=== PATIENT | male | born 1940 | race Caucasian/White ===

== ENCOUNTER 2016-09-22 02:51 | Emergency (ER) | payer MEDICARE, OTHER ==
[~2016-09-22] VITALS: Ht 180.3 cm; Wt 120.0 kg
[~2016-09-22 02:51] MED LIST: CRES20T PO; DOCU100C8 PO; FURO40TA4 PO; INSU100I13 SUBQ; INSU100I8 SUBQ; Isosorbide Mononitrate PO; METO50TA3 PO; NITR0.4T6 SL; TR5C15 TOP; WARF3TAB7 PO; [UNRECOGNIZED DRUG - CODE] PO
[2016-09-22 02:57] VITALS: BP 199/76; PULSE 70; RESP 16; O2SAT 96
--- NOTE | 2016-09-22 03:28 | ED.REPORT ---
HPI-Hand Prob/Inj Date of Service Sep 22, 2016 ED Provider: Inder Brock MD Patient is a year old male with a history of diabetes mellitus, coronary artery disease, hypertension, prostate cancer, congestive heart failure, stroke, and aortic valve replacement on Coumadin who presents to the ED with a skin tear to his left hand that he sustained just prior to arrival. Patient states that he was installing a shelf next to his bed and accidentally scraped himself. He was able to stop the bleeding with a paper towel at home. Patient did not sustain any other injuries. His INR was last checked on September 08, which was therapeutic.. He is unsure of when his last Tetanus shot was. Nursing Notes Stated Complaint: L HAND INJURY - ON WARFARIN Chief Complaint: Extremity Trauma Nursing Notes Reviewed: Yes Allergies: Coded Allergies: morphine (Verified Allergy, Intermediate, Hallucinations, 09/22/16) lisinopril (Verified Adverse Reaction, Mild, Cough, 09/22/16) Scheduled ([Isosorbide Mononitrate]) 30 MG TABLET.ER 60 MG PO 0730 Desipramine (Desipramine) 150 Mg Tab 150 MG PO HS Furosemide (Furosemide) 40 Mg Tablet 80 MG PO BID Insulin Glargine (Lantus U100 Solostar Insulin Pen) 100 Unit/1 Ml Insuln.pen 58 UNIT SUBQ DAILY Metoprolol Tartrate (Metoprolol Tartrate) 50 Mg Tablet 150 MG PO BID Rosuvastatin Calcium (Crestor) 20 Mg Tablet 40 MG PO DAILY Triamcinolone Acet (Triamcinolone Acetonide Cream) 4 Applic/Gm Cr 1 APPLIC TOP BID Warfarin Sodium (Warfarin Sodium) 3 Mg Tablet 3.5 MG PO DAILY Scheduled PRN Docusate Sodium (Docusate Sodium) 100 Mg Capsule 100 MG PO HS PRN PRN For Constipation Nitroglycerin SL (Nitroglycerin SL) 0.4 Mg Tab.subl 0.4 MG SL Q5MIN PRN PRN For Chest Pain General Time Seen by Provider: 03:32 Chief Complaint Hand injury left Hx Obtained From: Patient Arrived By: Walk-in Onset Occurred: Just prior to arrival Symptom Duration: Since onset Caused by: Accidental Location: Left Hand: : Dorsal surface Quality: Painful Severity: Current: Mild Severity: Maximum: Mild Immunizations: Tetanus not up to date Recent Healthcare: No recent doctor visit, No recent hospitalization Similar Sx Previous: No Past Medical History Past Medical History Prostate cancer s/p pelvic irradiation chronic kidney disease diabetic neuropathy depression Reports: Cancer, Congestive heart failure, Coronary artery disease, Diabetes mellitus, GERD, Hyperlipidemia, Hypertension, Stroke Past Surgical History lazer retinal surgery aortic valve replacement CABG 2009 to LAD and OM, pacemaker cararact extraction hernia repair Smoking History Former Smoker Social History Alcohol Use: Denies alcohol use Drug Use: Denies drug use Other Social History: Local resident Ambulatory Status Independent Review of Systems Musculoskeletal: Reports: Extremity pain, Denies: Extremity swelling Complete sys rev & neg: except as marked. Hematologic: Reports Bleeding, Denies Bruising Physical Exam Initial Vital Signs Vital Signs (First) Date Time Temp Pulse Resp B/P Pulse Ox O2 Delivery O2 Flow Rate FiO2 09/22/16 02:57 36.4 70 16 199/76 96 Room Air Initial VS: Reviewed, Vital signs abnormal Head / Eyes: Atraumatic, Normocephalic, PERRL ENT: Conjunctiva normal, No scleral icterus Neck: Supple, Full range of motion Skin: Warm, Dry, No cyanosis Neurologic: Alert, Oriented, Nonfocal Psychiatric: Mood/affect normal, Behavior normal, Normal thought content Wrist / Hand: Neurologic intact, Vascular intact Left hand: Skin avulsion, multicentric, across the 1-2 web space at the base of the thumb. Bleeding is well controlled. General/Constitutional: Awake, Alert, No acute distress Appearance / Presentation: Positive: Obese Respiratory / Chest: No respiratory distress, No stridor Cardiovascular: Heart rate NL, Cap refill not delayed Upper Extremity / MS: Neurologic intact, Vascular intact Lower Extremity / Pelvis / MS: Neurologic intact, Vascular intact Procedures Laceration Management Time: 04:32 Procedure Performed by: ED physician Consent / Setup / Site Prep: Time-out performed, Hand hygiene observed, Stand sterile technique Location of Wound: skin avulsion left hand Local Anesthesia: Other (LET) Wound Preparation: Normal saline Debridement: Moderate (devitalized skin removed) Foreign Body Explore / Removal: Explored for foreign body Post-Procedure / Complications: Antibiotic oint applied, Dressing applied, No complications, Condition improved, Tolerated procedure well, Patient stable Re-Eval/Medical Decision Med Decision/Clinical Course 76-year-old male with a skin tear which bled minimally. This was anesthetized topically with LET, debrided, and dressed. There is no excessive bleeding so I felt no indication to do an INR at this time. He will have his INR done as scheduled later this week or contact them sooner if there is bleeding. Source of Hx: Old records Re-Evaluation/Progress : Time of Eval: 04:33 Patient Status: Condition improved Re-Evaluation/Progress Note: Patient's wound was debrided and dressed. Patient understands and agrees with the plan to be discharged home. Discharge instructions and follow-up discussed. All questions were addressed. Return to the ED warnings given. Counseled Regarding: Diagnosis, Need for follow-up, When/why to return to ED Discharge & Departure Primary Impression: Avulsion of skin of left hand Encounter type: initial encounter Qualified Code: S61.402A - Unspecified open wound of left hand, initial encounter Disposition: Home Discharge Condition All VS Reviewed: Yes Condition: Stable Patient Instructions: Skin Avulsion (ED) Additional Instructions: The skin was removed and the wound was dressed. Get your ProTime/INR checked routinely with your regular clinic. You also received a tetanus shot. Referrals: Obinna Barrios MD (PCP) Alirioibe Attestation Portions of this note were transcribed by Soraida Jo. I, Dr. Brock personally performed the history, physical exam and medical decision-making; I reviewed and confirmed the accuracy of the information in the transcribed note. Signed by: Erik Milner, 09/22/2016 [id number] copies to: Obinna Barrios MD, Howard L MD Sep 22, 2016 03:28 Soraida Jo Sep 22, 2016 03:35
[2016-09-22] MEDS ORDERED: Influenza (Adult) Vaccine 0.5 mL Syringe IM ONE (03:35)
[2016-09-22] MEDS ORDERED: Lidocaine-Epi-Tetracaine Solution 3 mL Syringe TOPICAL ONE (03:35)
[2016-09-22] MEDS ORDERED: TdaP Vaccine 0.5 mL Inj IM ONE (04:40)
[2016-09-22 04:55] VITALS: BP 180/79; PULSE 72; RESP 16; O2SAT 98
== END 2016-09-22 05:03 | disposition home or self-care (01) ==
LOC: SED 02:51
DX: S61.402A Unspecified open wound of left hand, initial encounter (principal); W45.8XXA Other foreign body or object entering through skin, initial encounter; Y93.89 Activity, other specified; Y92.003 Bedroom of unspecified non-institutional (private) residence as the place of occurrence of the external cause; Y99.8 Other external cause status; E11.40 Type 2 diabetes mellitus with diabetic neuropathy, unspecified; I25.10 Atherosclerotic heart disease of native coronary artery without angina pectoris; I10 Essential (primary) hypertension; I50.9 Heart failure, unspecified; E78.5 Hyperlipidemia, unspecified; Z85.46 Personal history of malignant neoplasm of prostate; Z79.01 Long term (current) use of anticoagulants; Z86.73 Personal history of transient ischemic attack (TIA), and cerebral infarction without residual deficits; Z95.1 Presence of aortocoronary bypass graft; Z95.0 Presence of cardiac pacemaker; Z95.2 Presence of prosthetic heart valve; Z87.891 Personal history of nicotine dependence; Z88.5 Allergy status to narcotic agent; Z88.8 Allergy status to other drugs, medicaments and biological substances; Z79.4 Long term (current) use of insulin; Z23 Encounter for immunization
CPT/HCPCS: 90471; 90715; 96372; 97597; 99284; Q2039

== ENCOUNTER 2016-10-26 18:03 | Inpatient (IN) | payer MEDICARE, OTHER ==
[~2016-10-26] VITALS: Ht 180.3 cm; Wt 110.6 kg
[~2016-10-26 18:03] MED LIST changes: -INSU100I8 SUBQ
[2016-10-26 18:10] VITALS: BP 113/63; PULSE 64; RESP 17; O2SAT 96
[2016-10-26 19:02] LABS: BASOPHILS % (AUTO) 0.2 % (0-3); EOSINOPHILS % (AUTO) 1.2 % (0-5); MONOCYTES % (AUTO) 10.1 % (4-12); Mean Corpuscular Hemoglobin 29.9 pg (27.0-35.0); NEUTROPHILS % (AUTO) 71.9 % (40-74); Platelet Count 195 bil/L (150-400)
[2016-10-26 19:35] LABS: TROPONIN T 0.045 ug/L (0.0-0.011)
[2016-10-26 20:13] LABS: INR 2.32 ratio
--- NOTE | 2016-10-26 20:20 | ED.REPORT ---
HPI-General Illness Date of Service Oct 26, 2016 ED Provider: Marcus Longo MD 76 year old male with a history of chronic kidney disease, CHF, CAD, diabetes, and HTN presents to the ER complaining of a week of worsening generalized weakness, worsening dramatically this evening around 16:30. Daughter reports that the patient called her and reported that he was too weak to get out of bed. Associated symptom of cramping pain in his arms and legs, dyspnea with minimal exertion, and chronic transient chest discomfort, though no chest pain recently. Patient denies fever, abdominal pain, and seizures. His dredge master started him on a new medication about 10 days ago, per daughter. He also mentions that he ran out of his Lantus about a week ago, but he has been taking 10 units fast-acting insulin three times daily recently to compensate. Nursing Notes Stated Complaint: DEHYDRATION Chief Complaint: General Complaint Nursing Notes Reviewed: Yes Allergies: Coded Allergies: morphine (Verified Allergy, Intermediate, Hallucinations, 10/26/16) lisinopril (Verified Adverse Reaction, Mild, Cough, 10/26/16) Scheduled Cholecalciferol (Vitamin D3) (Vitamin D3) 2,000 Unit Tablet 2,000 UNIT PO DAILY Cyanocobalamin (Vitamin B-12) (Vitamin B-12) 1,000 Mcg Tablet 1,000 MCG PO DAILY Desipramine (Desipramine) 150 Mg Tab 150 MG PO HS Ferrous Sulfate (Ferrous Sulfate) 325 Mg Tablet 325 MG PO DAILY Furosemide (Furosemide) 80 Mg Tab 160 MG PO BIDWM Insulin Aspart (NovoLOG U100 Insulin Vial) 100 U/Ml U 10 UNIT SUBQ DAILYWD Insulin Glargine (Lantus U100 Solostar Insulin Pen) 100 Unit/1 Ml Insuln.pen 48- 58 UNIT SUBQ HS Pt ran out 1 week ago, supplementing with Novolog Isosorbide MN ER (Isosorbide MN ER) 60 Mg Tab.er.24h 60 MG PO HS Magnesium Oxide (Magnesium Oxide) 400 Mg Tablet 800 MG PO DAILY Metolazone (Metolazone) 2.5 Mg Tablet 2.5 MG PO Mon/Thurs only Metoprolol Tartrate (Metoprolol Tartrate) 50 Mg Tablet 50 MG PO BID Potassium Chloride ER (Potassium Chloride ER) 10 Meq Tablet 10 MEQ PO DAILY TAKE WITH FOOD Rosuvastatin Calcium (Rosuvastatin Calcium) 40 Mg Tablet 40 MG PO HS Warfarin Sodium (Warfarin Sodium) 3 Mg Tablet 3.5 MG PO DAILY Scheduled PRN Docusate Sodium (Colace) 100 Mg Capsule 100 MG PO DAILY PRN PRN For Constipation Nitroglycerin SL (Nitroglycerin SL) 0.4 Mg Tab.subl 0.4 MG SL Q5MIN PRN PRN For Chest Pain Triamcinolone Acet (Triamcinolone Acetonide Cream) 1 Applic/0.25 Gm Cr 1 APPLIC EXT BID PRN PRN rash General Time Seen by MD: 19:58 Chief Complaint Weakness Hx Obtained From: Patient Arrived By: Walk-in Onset Occurred: 1 week ago Symptom Duration: Since onset Associated with: Denies: Abdominal pain, Chest pain, Fever Additional Notes: Cramping pain in the arms and legs Pertinent Negative: Pt denies other symptoms Context Related History: Reports Cancer Recent Healthcare: Recent doctor visit Past Medical History Past Medical History Prostate cancer s/p pelvic irradiation chronic kidney disease diabetic neuropathy depression Reports: Cancer, Congestive heart failure, Coronary artery disease, Diabetes mellitus, GERD, Hyperlipidemia, Hypertension, Stroke Past Surgical History lazer retinal surgery aortic valve replacement CABG 2009 to LAD and OM, pacemaker cararact extraction hernia repair Smoking History Former Smoker Social History Alcohol Use: Denies alcohol use Drug Use: Denies drug use Other Social History: Local resident Ambulatory Status Independent Review of Systems Full Review of Systems Constitutional: Reports: Weakness - generalized, Denies: Chills, Fever Respiratory: Reports: Dyspnea on exertion, Denies: Non-productive cough, Shortness of breath Cardiovascular: Denies: Chest pain GI: Denies: Abdominal pain, Nausea, Vomiting Musculoskeletal: Reports: Extremity pain (Arms and Legs), Denies: Lumbar pain, Neck pain Neurologic: Denies: Seizure Complete sys rev & neg: except as marked. Physical Exam Vital Signs Vital Signs Date Time Temp Pulse Resp B/P Pulse Ox O2 Delivery O2 Flow Rate FiO2 10/26/16 21:25 36.1 64 18 154/55 89 Room Air 10/26/16 18:10 36.6 64 17 113/63 96 Room Air Initial VS: Reviewed Head / Eyes: Atraumatic, Normocephalic Neck: Supple, Non-tender, Full range of motion Abdomen / GI: Soft, Non-tender, No guarding, No rebound, No distention Extremities: Vascular intact, Neuro intact, No tenderness Skin: Warm, Dry, No cyanosis Neurologic: Alert, Oriented, Nonfocal General/Constitutional: Awake, Alert, Well developed, Well nourished Respiratory / Chest: Breath sounds NL, No respiratory distress, No rales, No rhonchi, No wheezing Cardiovascular: Heart rate NL, Regular rhythm, Heart sounds NL, No murmurs, Cap refill not delayed Lower Ext Edema: Positive: Bilateral 1+ Interpretation & Diagnostics Lab Results Interpretation Result Diagram: 10/26/168 10/26/161847 Test 10/26/16 18:48 10/26/16 21:18 White Blood Count 5.7th/mm3 (3.8-10.1) Red Blood Count 4.48mil/mm3 (4.40-5.80) Hemoglobin 13.4g/dL (13.8-17.2) Hematocrit 37.2% (41.0-50.0) Mean Corpuscular Volume 83.0fL (81-100) Mean Corpuscular Hemoglobin 29.9pg (27.0-35.0) Mean Corpuscular Hemoglobin Concent 36.0% (32.0-37.0) Red Cell Distribution Width 12.1% (12.3-15.4) Platelet Count 195bil/L (150-400) Neutrophils (%) (Auto) 71.9% (40-74) Lymphocytes (%) (Auto) 16.6% (14-46) Monocytes (%) (Auto) 10.1% (4-12) Eosinophils (%) (Auto) 1.2% (0-5) Basophils (%) (Auto) 0.2% (0-3) Sodium Level 123mEq/L (134-144) Potassium Level 3.6mEq/L (3.5-5.2) Chloride Level 79mEq/L (97-108) Carbon Dioxide Level 32mmol/L (18-29) Blood Urea Nitrogen 51mg/dL (8-27) Creatinine 2.58mg/dL (0.76-1.27) Estimat Glomerular Filtration Rate 26mL/min (>59) Glucose Level 615mg/dL (60-99) Osmolality 303 (275-300) Calcium Level 9.0mg/dL (8.5-10.1) Total Bilirubin 0.5mg/dL (0.0-1.2) Aspartate Amino Transf (AST/SGOT) 21U/L (0-50) Alanine Aminotransferase (ALT/SGPT) 21U/L (0-44) Alkaline Phosphatase 106U/L (25-160) Troponin T 0.045ug/L (0.0-0.011) Total Protein 6.5g/dL (6.4-8.4) Albumin 3.3g/dL (3.4-5.0) Hold Roberto Top Tube Received (Received) Ketones Negative (Negative) Urine Color Straw (YELLOW) Urine Appearance Clear (CLEAR,HAZY) Urine pH 6.0 (5.0-8.0) Urine Specific [place] 1.020 (1.003-1.035) Urine Protein 100mg/dL (NEG,TRACE) Urine Glucose (UA) 1000mg/dL (NEGATIVE) Urine Ketones Negativemg/dL (NEGATIVE) Urine Occult Blood Small (NEGATIVE) Urine Nitrite Negative (NEGATIVE) Urine Bilirubin Negative (NEGATIVE) Urine Urobilinogen Normalmg/dL (NORMAL) Urine Leukocyte Esterase Negative (NEGATIVE) Urine RBC 0-2/hpf (0-2) Urine WBC 0-5/hpf (0-5) Urine Epithelial Cells None/hpf (NONE-MOD) Urine Crystals None seen (NONE SEEN) Urine Bacteria None/hpf (NONE-FEW) Urine Hyaline Casts None/lpf (NONE) Urine Granular Casts None seen (NONE SEEN) Urine Waxy Casts None seen (NONE SEEN) Urine Red Blood Cell Casts None seen (NONE SEEN) Urine White Blood Cell Casts None seen (NONE SEEN) Urine Mucus None seen (None Seen) Urine Trichomonas None seen (NONE SEEN) Urine Yeast None (NONE SEEN) Urinalysis Comment None Urine Culture Reflexed Not indicated ECG Interpretation ECG Interpretation: Paced rhythm LVH Time: 19:31 Interpreted by: ED physician X-Ray Chest Interpretation Chest Xray Interpretation: IMPRESSION: No acute disease Dictated by: Nathan Hernandez M.D. on 10/26/2016 at 20:41 Approved by: Nathan Hernandez M.D. on 10/26/2016 at 20:41 View: Portable, 1 view Interpretation / Wet Read by: Interpret - Radiologist Re-Eval/Medical Decision Med Decision/Clinical Course 76-year-old male history of diabetes, CK D, hypertension presenting complaining of generalized weakness 1 week. Patient had metolazone added one week ago. He also of note ran out of his Lantus 1 week ago and has been unable to get this filled. Labs remarkable for sodium 123, glucose 600, creatinine 2.5 up from 1.9 previous, troponin 0.04 (chronically elevated). Ketones are negative and osms are 304 no DKA or HHS. Patient feels very weak and does not feel comfortable going home. He will be admitted for weakness, hyperglycemia, hyponatremia, elevated troponins. Given aspirin. Trend trops. Give IV fluids. Source of Hx: Old records Time of Eval: 20:47 Re-Evaluation/Progress Note: Completed physical examination and discussed need for admission. Patient is amenable to the plan. All other questions addressed. Consultation : Referral / Consult Name: Jacky Thomas MD Consulted With: Hospitalist Call Returned at: 21:29 Alarm Installer: Agrees with eval, Agrees with plan, Accepts admit Counseled Regarding: Diagnosis, Lab results, Need for admission Discharge & Departure Primary Impression: Weakness Additional Impressions: Hyponatremia Hyperglycemia Acute kidney injury Disposition: ADMITTED TO HOSPITAL Discharge Condition All VS Reviewed: Yes Condition: Stable Referrals: Obinna Barrios MD (PCP) Erik Attestation Portions of this note were transcribed by Edson Keen. I, Dr. Longo, personally performed the history, physical exam and medical decision-making; I reviewed and confirmed the accuracy of the information in the transcribed note. Signed by: Erik Matta, 10/26/2016 - 21:32 copies to: Obinna Barrios MD, Ben M MD Oct 26, 2016 20:20 EDSON KEEN Oct 26, 2016 20:22
--- NOTE | 2016-10-26 20:43 | DRSVH ---
PROCEDURE: X-RAY CHEST ONE VIEW, PORTABLE ([id number]) INDICATIONS: CONGESTIVE HEART FAILURE TECHNIQUE: One view of the chest was acquired. COMPARISON: [facility], CR, XR CHEST 1VW (PORTABLE), 02/26/2016, 23:16. FINDINGS: Surgical changes and devices: Sternotomy wires and cardiac pacer Lungs and pleura: No pleural effusions or pneumothorax. Lungs are clear. Mediastinum: Mediastinal contours appear normal. Heart size is normal. Bones and chest wall: No suspicious bony lesions. Overlying soft tissues appear unremarkable. IMPRESSION: No acute disease Dictated by: Nathan Hernandez M.D. on 10/26/2016 at 20:41 Approved by: Nathan Hernandez M.D. on 10/26/2016 at 20:41
[2016-10-26] MEDS ORDERED: 0.9% Sodium Chloride 500 ML IV ONE ×2 (20:50→21:55)
[2016-10-26] MEDS ORDERED: Insulin LISPRO 300 Unit/3 mL Inj SUBQ ONE (20:50)
[2016-10-26 21:25] VITALS: BP 154/55; PULSE 64; RESP 18; O2SAT 89
[2016-10-26 21:49] LABS: APPEARANCE,URINE CLEAR (CLEAR,HAZY); COLOR,URINE STRAW (YELLOW); OCCULT BLOOD,URINE SMALL (NEGATIVE); UROBILINOGEN,URINE NORMAL (NORMAL)
[2016-10-26] MEDS ORDERED: Ondansetron 2 mg/mL 2 mL Inj IVPUSH PRN ×2 (21:50→22:20)
[2016-10-26] MEDS ORDERED: Alum-Mag Hydrox-Simeth 30 mL Suspension PO PRN ×2 (21:50→22:20)
[2016-10-26] MEDS ORDERED: FRSM80T PO (21:51)
[2016-10-26] MEDS ORDERED: METO2.5T12 PO (21:53)
[2016-10-26] MEDS ORDERED: POTA10TA12 PO (21:54)
[2016-10-26] MEDS ORDERED: DOCU-41 PO (21:55)
[2016-10-26] MEDS ORDERED: INSU100C8 SUBQ (21:55)
[2016-10-26] MEDS ORDERED: ROSU40TA20 PO (21:56)
[2016-10-26] MEDS ORDERED: ISOS60TA2 PO ×2 (21:57)
[2016-10-26] MEDS ORDERED: MAGN400T4 PO (21:58)
[2016-10-26] MEDS ORDERED: FERR-83 PO (21:59)
[2016-10-26] MEDS ORDERED: CYAN10008 PO (21:59)
[2016-10-26] MEDS ORDERED: CHOL200025 PO (22:00)
[2016-10-26] MEDS ORDERED: CHOL100043 PO (22:00)
[2016-10-26] MEDS ORDERED: KEN25CR EXT (22:03)
[2016-10-26] MEDS: 0.9% Sodium Chloride 1,000 ML IV SCH (22:17)
[2016-10-26] MEDS ORDERED: Glucose 40% Oral Gel 15 Gm Tube PO PRN (22:20)
[2016-10-26 22:43] VITALS: BP 142/66; PULSE 61; RESP 18; O2SAT 96
[2016-10-26 22:54] VITALS: PULSE 63
[2016-10-26 23:03] LABS: INR 2.09 ratio
[2016-10-26 23:20] LABS: Magnesium 1.8 mg/dL (1.6-2.6)
[2016-10-26 23:42] VITALS: BP 132/84; PULSE 66; RESP 18; O2SAT 98
[2016-10-27] VITALS (7 sets, daily range): BP systolic 132–179; BP diastolic 53–82; PULSE 67–92; RESP 18–22; O2SAT 91–95
--- NOTE | 2016-10-27 00:06 | NUR ---
Admitting: Patient admitted into 3004 from ED via [facility]. Daughter at bedside during admission. RA, Vitals stable, No pain or SOB. Admission questions were answered appropriately. BS of 560 noted. Home meds not available at this time but plan to have them by tomorrow morning. Report passed to RN, BS reading was brought to their attention.
[2016-10-27] MEDS ORDERED: Heparin 5,000 Unit/mL Inj SUBQ SCH (00:30)
--- NOTE | 2016-10-27 01:30 | PCM.HPMED ---
Subjective Date of Service Oct 26, 2016 Primary Provider: Admitting Physician: Jacky Thomas MD Primary Care Physician: Obinna Barrios MD Attending Physician: Jacky Thomas MD Chief Complaint: worsening weakness History of Present Illness: 76-year-old male patient with history of insulin-dependent diabetes, CAD status post CABG, valvular disease status post replacement, chronic kidney disease and congestive heart failure presented to the ER with the complaint of increasing weakness. Patient reports that for the past 3-4 weeks he has been noticing worsening weakness. He states that weakness began when he started taking metolazone which is a new medication prescribed by his journalists and other writers. Patient states that his journalists and other writers has been very focused on decreasing the amount of edema in his lower extremities, and the started this new medication. Patient reports that he has been urinating significant amounts, but has not noted any decrease in his lower extremity edema. Patient reports that he has been feeling very weak, stumbling when he walks, and feeling as though his legs are very weak. Patient reports he has also not been taking his Lantus for the past 2-3 weeks as he ran out. In the ER patient found to have a temperature 36.6, pulse 64, respiratory rate 17, blood pressure 113/63, pulse ox 96 on room air. Review of Systems: A comprehensive review of systems was conducted with the patient and found to be negative except as above in the History of Present Illness. Allergies Coded Allergies: morphine (Verified Allergy, Intermediate, Hallucinations, 10/27/16) lisinopril (Verified Adverse Reaction, Mild, Cough, 10/27/16) Home Medications Medication reconciliation not yet completed PMH Insulin-dependent diabetes mellitus Severe aortic stenosis status post aortic valve replacement Coronary artery disease status post CABG Paroxysmal A. fib that is post pacemaker placement Hypertension Hyperlipidemia Chronic kidney disease GERD Diabetic neuropathy Depression Cataracts History of CVA Congestive heart failure Spinal stenosis declined mild cytopenias Prostate cancer status post radiation and androgen deprivation Surgical History CABG Aortic valve replacement Cataract Hernia repair Family History Father of lung cancer Mother Parkinson's Social History Hx Alcohol Use: Yes (occasional) Hx Substance Use: No Hx Tobacco Use: Yes (smoked for 13 years, up to 3-1/2 packs a day, 40 years ago ) Smoking Status: Former Smoker Living Arrangement: with Family Additional Information Daughter Tessa Hare is DPOA Exam Vital Signs Vital Sign - Last Date Time Temp Pulse Resp B/P Pulse Ox O2 Delivery O2 Flow Rate FiO2 10/26/16 21:25 36.1 64 18 154/55 89 Room Air Exam General: No acute distress, well-developed, well-nourished, appropriately interactive HEENT: Normocephalic, atraumatic. External ears without defect. Pupils equal, round, and reactive to light and accommodation. Moist conjunctivae. Oropharynx with dry mucosa. Neck: Supple with full range of motion.No lymphadenopathy Cardiovascular: Regular rate and rhythm with systolic murmur auscultated best heard at left sternal border, no rubs, or gallops appreciated Pulmonary: Clear to auscultation bilaterally with no crackles, wheezes, or rhonchi. Normal respiratory effort with no use of accessory muscles. Abdomen: Large abdomen Bowel tones present. Soft, nontender, nondistended. Extremities: Bilateral lower extremity pitting edema Skin: Normal temperature, turgor, and texture; no rash, ulcers, or subcutaneous nodules appreciated. Psychiatric: Normal mood and affect. Alert and oriented to person, place, and time. Lab and Diagnostics Result Diagram: 10/26/16184710/26/161847 X-Rays, CTs and MRIs PROCEDURE: X-RAY CHEST ONE VIEW, PORTABLE ([id number]) INDICATIONS: CONGESTIVE HEART FAILURE TECHNIQUE: One view of the chest was acquired. COMPARISON: [facility], CR, XR CHEST 1VW (PORTABLE), 02/26/2016, 23: 16. FINDINGS: Surgical changes and devices: Sternotomy wires and cardiac pacer Lungs and pleura: No pleural effusions or pneumothorax. Lungs are clear. Mediastinum: Mediastinal contours appear normal. Heart size is normal. Bones and chest wall: No suspicious bony lesions. Overlying soft tissues appear unremarkable. IMPRESSION: No acute disease Dictated by: Nathan Hernandez M.D. on 10/26/2016 at 20:41 Approved by: Nathan Hernandez M.D. 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 -Outpatient records demonstrate Cr and BUN of 1.73 and 41 respectively in 2015 -Gentle hydration with NS 100mls/hr -Continue to monitor with AM labs -Consider Nephrology Consult if not improving Hyponatremia,present on admission, ongoing -Na on admission 123 -Likely secondary to dehydration from over-diuresing -Continue with hydration, reassess in AM -AM labs Hyperglycemia in the setting of insulin-dependent diabetes mellitus, present on admission, ongoing -Glucose on admission 645 -Pt admitted he has not been taking Lantus for 2-3 wks, if not longer -Check BG q 6 hours -Lantus 48 units administered and to be continued( this is pt's reported home dose) -High dose correctional insulin protocol ordered -Per outside records, most recent A1C was 10.6 -A1C pending Congestive heart failure, presumed stable -BNP mildly elevated at 2328 -Last echo done in 2013 reported LVH with EF 65-75 -Gentle hydration, but will monitor for fluid overload and adjust accordingly. Hypertension, presumed stable -Once medication reconciliation is completed, we will continue home medications. -Continue to hold diuretics Paroxysmal A. fib, presumed stable -Continue with warfarin, pharmacy to dose -Current INR 2.09 Elevated troponin, likely secondary to chronic kidney disease -Pt denies any chest pain or pressure -Not trending troponins PCP: Dr Barrios Code: Full Code Resuscitation Status: CPR: Attempt Resuscitation Attending Statement The patient was seen and examined together with Dr. Fraire on 10/26 and I agree with the history, exam and plan as outlined in the note above. copies to: Obinna Barrios MD, Tara L DO Oct 26, 2016 22:25 Jacky Thomas MD Oct 27, 2016 02:56
[2016-10-27] MEDS: Insulin GLARgine 100 Unit/mL Syringe SUBQ SCH ×2 (02:48→21:24)
--- NOTE | 2016-10-27 03:00 | NUR ---
Blood Glucose On completing the assessment, patients one touch blood glucose level was [address] Fraire paged regarding medication order. Lantus 48 units ordered. Lantus 48 units administered. Patients VSS. Patient states no pain at this time. Call light within reach. Care continues.
--- NOTE | 2016-10-27 03:58 | PCM.CONPHA ---
Subjective Date of Service: Oct 26, 2016 Requesting Provider: Martha Fraire DO worsening weakness Reason for Pharmacy Consult: Anticoagulation Management Objective Vital Signs Date Time Temp Pulse Resp B/P Pulse Ox O2 Delivery O2 Flow Rate FiO2 10/27/16 00:35 36.3 67 18 163/74 94 Room Air 10/26/16 23:42 36.3 66 18 132/84 98 Room Air 10/26/16 22:54 63 10/26/16 22:43 36.1 61 18 142/66 96 Room Air 10/26/16 21:25 36.1 64 18 154/55 89 Room Air 10/26/16 18:10 36.6 64 17 113/63 96 Room Air Intake and Output 10/25/16 10/26/16 10/27/16 00:00 00:00 00:00 Output Total 400 ml Balance -400 ml Weight (Kilograms): 110.600 Height (Feet): 5 Height (Inches): 11.00 Test 10/26/16 18:48 10/26/16 21:18 10/26/16 22:45 White Blood Count 5.7th/mm3 (3.8-10.1) Red Blood Count 4.48mil/mm3 (4.40-5.80) Hemoglobin 13.4g/dL (13.8-17.2) Hematocrit 37.2% (41.0-50.0) Mean Corpuscular Volume 83.0fL (81-100) Mean Corpuscular Hemoglobin 29.9pg (27.0-35.0) Mean Corpuscular Hemoglobin Concent 36.0% (32.0-37.0) Red Cell Distribution Width 12.1% (12.3-15.4) Platelet Count 195bil/L (150-400) Neutrophils (%) (Auto) 71.9% (40-74) Lymphocytes (%) (Auto) 16.6% (14-46) Monocytes (%) (Auto) 10.1% (4-12) Eosinophils (%) (Auto) 1.2% (0-5) Basophils (%) (Auto) 0.2% (0-3) Sodium Level 123mEq/L (134-144) Potassium Level 3.6mEq/L (3.5-5.2) Chloride Level 79mEq/L (97-108) Carbon Dioxide Level 32mmol/L (18-29) Blood Urea Nitrogen 51mg/dL (8-27) Creatinine 2.58mg/dL (0.76-1.27) Estimat Glomerular Filtration Rate 26mL/min (>59) Glucose Level 615mg/dL (60-99) Osmolality 303 (275-300) Calcium Level 9.0mg/dL (8.5-10.1) Total Bilirubin 0.5mg/dL (0.0-1.2) Aspartate Amino Transf (AST/SGOT) 21U/L (0-50) Alanine Aminotransferase (ALT/SGPT) 21U/L (0-44) Alkaline Phosphatase 106U/L (25-160) Troponin T 0.045ug/L (0.0-0.011) Total Protein 6.5g/dL (6.4-8.4) Albumin 3.3g/dL (3.4-5.0) Hold Roberto Top Tube Received (Received) Ketones Negative (Negative) Urine Color Straw (YELLOW) Urine Appearance Clear (CLEAR,HAZY) Urine pH 6.0 (5.0-8.0) Urine Specific [place] 1.020 (1.003-1.035) Urine Protein 100mg/dL (NEG,TRACE) Urine Glucose (UA) 1000mg/dL (NEGATIVE) Urine Ketones Negativemg/dL (NEGATIVE) Urine Occult Blood Small (NEGATIVE) Urine Nitrite Negative (NEGATIVE) Urine Bilirubin Negative (NEGATIVE) Urine Urobilinogen Normalmg/dL (NORMAL) Urine Leukocyte Esterase Negative (NEGATIVE) Urine RBC 0-2/hpf (0-2) Urine WBC 0-5/hpf (0-5) Urine Epithelial Cells None/hpf (NONE-MOD) Urine Crystals None seen (NONE SEEN) Urine Bacteria None/hpf (NONE-FEW) Urine Hyaline Casts None/lpf (NONE) Urine Granular Casts None seen (NONE SEEN) Urine Waxy Casts None seen (NONE SEEN) Urine Red Blood Cell Casts None seen (NONE SEEN) Urine White Blood Cell Casts None seen (NONE SEEN) Urine Mucus None seen (None Seen) Urine Trichomonas None seen (NONE SEEN) Urine Yeast None (NONE SEEN) Urinalysis Comment None Urine Culture Reflexed Not indicated Prothrombin Time 22.7sec (8.1-12.5) Prothromb Time International Ratio 2.09ratio Magnesium Level 1.8mg/dL (1.6-2.6) Pro-B-Type Natriuretic Peptide 2190pg/mL (0-486) Assessment/Plan Assessment/Plan A: * Warfarin dosing by pharmacy for 76 y/o man with paroxysmal atrial fibrillation * His INR was therapeutic on 10/26 * Patient reported he did not take his dose on 10/26 * He takes 3.5 mg of warfarin daily at home in the evening * No significant drug interactions noted P: * Gave a 3.5 mg dose of warfarin * If INR remains remains therapeutic, continue his home dosing Thank you. Pharmacy will continue to follow this patient. Carrie Pinon, PharmD Carrie Pinon Oct 27, 2016 03:58
[2016-10-27] MEDS: 0.9% Sodium Chloride 1,000 ML IV SCH (06:03)
[2016-10-27 06:36] LABS: BASOPHILS % (AUTO) 0.2 % (0-3); EOSINOPHILS % (AUTO) 2.1 % (0-5); MONOCYTES % (AUTO) 9.2 % (4-12); Mean Corpuscular Hemoglobin 29.6 pg (27.0-35.0); Mean Corpuscular Volume 82.8 fL (81-100); NEUTROPHILS % (AUTO) 64.3 % (40-74); Platelet Count 160 bil/L (150-400)
[2016-10-27 06:37] LABS: INR 2.01 ratio
[2016-10-27] MEDS ORDERED: Potassium Chloride 20 mEq SR Tablet PO ONE (07:35)
[2016-10-27] MEDS ORDERED: KCl 40 mEq/D5W 500 mL 40 MEQ in IV Premix 500 EACH IV ONE (07:35)
[2016-10-27] MEDS: Insulin LISPRO 300 Unit/3 mL Inj SUBQ SCH ×4 (08:07→21:23)
--- NOTE | 2016-10-27 13:28 | PCM.PNMED ---
Subjective Date of Service Oct 27, 2016 Subjective says overall feeling better today. denies any new issues/complaints. Exam Vital Signs Vital Sign - Last Date Time Temp Pulse Resp B/P Pulse Ox O2 Delivery O2 Flow Rate FiO2 10/27/16 10:27 85 10/27/16 09:42 36.3 20 132/71 95 Room Air Intake and Output 10/26/16 10/26/16 10/27/16 Cumulative From/Thru 15:00 23:00 07:00 10/26/16 18:10 - 10/27/16 06:34 Intake Total 1228 ml 1228 ml Output Total 400 ml 650 ml 1050 ml Balance -400 ml 578 ml 178 ml Intake Oral 200 ml 200 ml IV Total 1028 ml 1028 ml Output Urine Total 400 ml 650 ml 1050 ml # Voids 1 1 General: Alert, Oriented X3, Cooperative, No Acute Distress Head: Normal Eyes: Scleral Anicteric Nose: Mucous Membr Moist/[place] Mouth: Mucous Membr Moist/[place] Neck: Supple Chest & Lungs: Chest Wall Normal, Clear to auscultation & percussion Cardiovascular: Regular Rate/Rhythm Abdomen: Non-tender, Non-distended, Normoactive bowel tones, Soft Extremities: Edema (2+ pitting edema in LE bilat) Neurological: Grossly Neurologically Intact, Normal Speech IVs and Medications Medications Reviewed: Medications were reviewed in detail Lab and Diagnostics Result Diagram: 10/27/16 0530 10/27/16 0530 X-Rays, CTs and MRIs PROCEDURE: X-RAY CHEST ONE VIEW, PORTABLE ([id number]) INDICATIONS: CONGESTIVE HEART FAILURE TECHNIQUE: One view of the chest was acquired. COMPARISON: [facility], CR, XR CHEST 1VW (PORTABLE), 02/26/2016, 23: 16. FINDINGS: Surgical changes and devices: Sternotomy wires and cardiac pacer Lungs and pleura: No pleural effusions or pneumothorax. Lungs are clear. Mediastinum: Mediastinal contours appear normal. Heart size is normal. Bones and chest wall: No suspicious bony lesions. Overlying soft tissues appear unremarkable. IMPRESSION: No acute disease Dictated by: Nathan Hernandez M.D. on 10/26/2016 at 20:41 Approved by: Nathan Hernandez M.D. on 10/26/2016 at 20:41 Assessment & Plan 76-year-old male patient with history of insulin-dependent diabetes, CAD status post CABG, valvular disease status post replacement, chronic kidney disease and congestive heart failure presented to the ER with the complaint of increasing weakness. Patient reports that for the past 3-4 weeks he has been noticing worsening weakness. He states that weakness began when he started taking metolazone which is a new medication prescribed by his inclusion intern. # Acute generalized weakness, present on admission, improving - Likely secondary to underlying dehydration, ANGELINA and associated electrolyte imbalance - c/w rehydration - replete electrolytes as needed - PT evaluation # Acute kidney injury in the setting of chronic kidney disease stage III, present on admission, improving - Likely secondary to dehydration from aggressive diuresis - Pt recently started on Metolazone by his Chlorine Cells Operator (Dr. Guerrero) - c/w gentle IVF - Continue to monitor with AM labs - Consider Nephrology Consult # Acute hyponatremia, present on admission, improving - likely secondary to dehydration from over-diuresing - continue with hydration - hold diuretics for now - AM labs # Acute hypokalemia - replete and f/u # Acute hyperglycemia in the setting of insulin-dependent diabetes mellitus, present on admission, improving - Glucose on admission 645 - Pt admitted he had not been taking Lantus for 2-3 wks, if not longer - Lantus 48 units administered and to be continued (this is pt's reported home dose) - High dose correctional insulin protocol ordered - A1C pending # Chronic diastolic congestive heart failure, presumed stable - Last echo done in 2013 reported LVH with EF 65-75 - Gentle hydration, but will monitor for fluid overload and adjust accordingly. # Hypertension, stable - c/w home BP meds - continue to hold diuretics # Paroxysmal A. fib, stable - Continue with warfarin, pharmacy to dose - f/u daily INR # Elevated troponin without any reported chest pain - Pt denies any chest pain or pressure - likely chronic and amplified by underlying ANGELINA Dispo: 2-3 days pending resolution of ANGELINA VTE Mechanical Devices: Intermittant Pneumatic CD Resuscitation Status: CPR: Attempt Resuscitation Time spent 35 min Eyad Sharma Oct 27, 2016 13:28
--- NOTE | 2016-10-27 15:07 | DRSVH ---
[facility] [address] [place] [address] Echocardiogram Report Name: JACKY MOODY Aayush e: 10/27/2016 Height: 71 in Hospital Exam Location: [facility] Weight: 244 lb Gender: Male BSA: 2.3 m2 : 1940 Age: 76 yrs BP: 137/69 mmHg Reason For Study: CHF History: AVR Ordering Physician: HOSPITALIST [facility] Performed By: Shadia Stout Referring Physician: DR. Sola BELLA, DR. Mark Anthony HILL Interpretation Summary Mild-moderate concentric left ventricular hypertrophy with ejection fraction 65-70%. Grade I diastolic dysfunction. Mildly dilated left atrium. The bioprosthetic aortic valve is well-seated. The peak aortic velocity is 2.4 m/sec.(the previous exam was 2.1 m/sec) Mild mitral annular calcification. Comparison is made with the echocardiogram of 03-08-2014, LV wall thickness has increased slightly. Procedure: A two-dimensional transthoracic echocardiogram with color flow and Doppler was performed. Image quality is very poor. The subcostal views were not obtained due to no visualization. A contrast injection of Definity was performed to improve assessment of LV function. Contrast was injected into an intravenous site in the right arm. A total of 4 cc of contrast was given. Comparison is made with the echocardiogram of 03-08-2014. The patient has a paced rhythm. The patient did well with the Definity Contrast. No complications were noted. Left Ventricle: The left ventricle is not well visualized. The left ventricle is grossly normal size. There is mild-moderate concentric left ventricular hypertrophy. The LVOT diameter is 2.2 cm. Grossly normal LV systolic function. The ejection fraction is estimated to be 65-70%. There are no obvious focal wall motion abnormalities noted but poor endocardial definition reduces the sensitivity for the detection of such. Assessment of diastolic parameters indicates a relaxation abnormality of the left ventricle, consistent with normal filling pressures. Right Ventricle: The right ventricle is not well visualized. The right ventricle grossly appears normal in size with probable normal systolic function. There is a pacemaker lead in the right ventricle. Atria: The left atrium is mildly dilated. The right atrium grossly appears normal in size. Mitral Valve: The mitral valve leaflets appear mildly thickened, but open well. There is mild mitral annular calcification. There is no mitral regurgitation noted. Aortic Valve: The aortic valve is not well visualized. There is a bioprosthetic aortic valve. The prosthetic aortic valve is well-seated. The prosthetic aortic valve appears to open well. The calculated aortic valve area is 2.4 cm2. The peak aortic velocity is 2.4 m/sec. The aortic valve mean gradient is 11 mmHg. The peak aortic velocity on the previous exam was 2.1 m/sec. No aortic regurgitation is present. Tricuspid Valve: The tricuspid valve is not well visualized, but is grossly normal. No tricuspid regurgitation. Pulmonic Valve: The pulmonic valve is not well visualized. Great Vessels: The aortic root is normal size. The ascending aorta could not be visualized. The pulmonary is not well visualized. The inferior vena cava was not visualized. Pericardium/ Pleura There is no pericardial effusion. There is no pleural effusion. MMode/2D Measurements & Calculations LVIDd: 4.2 cm LA dimension: 5.7 cm RA long axis LVOT diam: 2.2 cm LVIDs: 2.6 cm AoV Opening FS: 37.5 % LA A2 area: 25.8 cm RA area EPSS: 0.70 cm LA A4 area: 29.8 cm Ao root diam IVSd: 1.6 cm LA length (vol) : 17.3 cm LVPWd: 1.1 cm RA vol Ao Arch Diam (Prox LA vol: 99.5 ml : 52.8 ml Trans): 3.0 cm LA vol index RA : 23.0 mm2 : 43.4 ml/m2 LV kebede. diameter/BSA LV sys. diameter/BSA (cm/m^2): 1.8 (cm/m^2): 1.2 Doppler Measurements & Calculations Ao V2 max MV E max pete MV E/A: 0.58 PA V2 max : 240.7 cm/sec : 86.8 cm/sec Med Peak E' Peet : 149.5 cm/sec Ao max PG MV A max pete PA mean PG : 23.2 mmHg : 148.9 cm/sec E/E' med: 26.3 Ao mean PG MV P1/2t: 112.5 msec Lat Peak E' Pete PA Accel Time : 11.1 mmHg : 0.07 sec LVOT Max Pete MVA(VTI): 2.7 cm2 E/E' lat: 15.6 : 153.8 cm/sec E/e' average: 20.9 Pulm A Revs Dur LOLA(I,D): 2.4 cm sev ratio MV A dur: 0.19 sec MV V2 mean MV P1/2t max pete Ao V2 mean LV V1 max PG : 90.0 cm/sec : 159.1 cm/sec MV mean PG MVA(P1/2t): 2.0 cm2 Ao V2 VTI: 41.5 cm LV V1 VTI LOLA(V,D): 2.4 cm2 : 26.1 cm MV V2 VTI MV dec time : 0.37 sec PA V2 mean LOLA indexed to BSA Pulm A Revs Dur - MV A : 100.2 cm/sec (cm^2/m^2): 1.0 Dur: -0.08 msec Electronically signed by: Rajesh Reynolds on Reading Physician:10/27/2016 03:06 PM
[2016-10-27] MEDS: Isosorbide Mononitrate 60 mg ER24 Tablet PO SCH (21:21)
[2016-10-28 00:39] VITALS: BP 151/64; PULSE 77; RESP 18; O2SAT 95
[2016-10-28] MEDS: 0.9% Sodium Chloride 1,000 ML IV SCH (01:34)
[2016-10-28 04:10] VITALS: BP 162/80; PULSE 85; RESP 18; O2SAT 96
--- NOTE | 2016-10-28 06:27 | NUR ---
O2 sats at HS Pt O2 sat 92-96% on RA for most of night while sleeping. Pt would occasionally desat to 80's. Pt put on 2L via NC with O2 sat improving to greater than 92%. Otherwise uneventful evening.
[2016-10-28 07:00] LABS: INR 2.44 ratio
[2016-10-28] MEDS ORDERED: KCl 40 mEq/D5W 500 mL 40 MEQ in IV Premix 500 EACH IV ONE (07:25)
[2016-10-28] MEDS ORDERED: 0.9% NaCl + KCl 20 mEq/L 1,000 ML IV ONE (07:25)
[2016-10-28] MEDS: Insulin LISPRO 300 Unit/3 mL Inj SUBQ SCH ×4 (09:17→21:08)
[2016-10-28 09:41] VITALS: BP 134/70; PULSE 96; RESP 20; O2SAT 97
[2016-10-28 10:18] VITALS: PULSE 90
--- NOTE | 2016-10-28 10:28 | NUR ---
Social Work: Initial Assessment / Readiness for d/c Data: Pt is a 76 y/o male admitted for weakness, hyponatremia, hyperglycemia. Pt's PCP is Dr Barrios, pt's insurance is Medicare with [employer] out of state supp. EMR reviewed, pt discussed in rounds. MD states pt likely to d/c today. PT recommending HH for pt, pt walking over 300 ft. FOAM RUBBER CURER met with pt at bedside, role explained. Pt states he lives in [place] with a roommate in a single story home where there are 6 stairs to enter the home. Pt states he has not hx of HH, has been to [facility] a few times, has no LTC or VA benefits, and is not a caregiver. Pt states he does have an AD/DPOA, AD in EMR, FOAM RUBBER CURER requested DPOA paper work for hospital. FOAM RUBBER CURER explained that PT is recommending HH for him at this time. Pt states he does not want anyone to come to his home. FOAM RUBBER CURER asked pt if he may be willing to stay with his daughter, if she is able, and have HH come there. Pt states maybe, if it is okay with her. FOAM RUBBER CURER gave pt HH choice list. Pt states no preference. FOAM RUBBER CURER called pt's daughter, no voicemail set up. FOAM RUBBER CURER called pt's NO[facility] listed, his grandson, left a message requesting a call back. Assessment: Pt who is independent at baseline. Plan: Pt will likely d/c today either to home with no HH or to his daughters home with HH if she is willing to have him. Pt states he does not want HH coming to his home in [place]. FOAM RUBBER CURER awaiting phone call from pt's family. FOAM RUBBER CURER will continue to follow. TYLER Landaverde Addendum: 10/28/16 at 1034 by CHIVO CORONEL Amended: Links added.
--- NOTE | 2016-10-28 14:40 | PCM.PNMED ---
Subjective Date of Service Oct 28, 2016 Subjective reports generalized weakness today Exam Vital Signs Vital Sign - Last Date Time Temp Pulse Resp B/P Pulse Ox O2 Delivery O2 Flow Rate FiO2 10/28/16 10:18 90 10/28/16 09:41 36.3 20 134/70 97 Room Air Intake and Output 10/27/16 10/27/16 10/28/16 Cumulative From/Thru 15:00 23:00 07:00 10/26/16 18:10 - 10/28/16 06:08 Intake Total 20 ml 841 ml 200 ml 2289 ml Output Total 1350 ml 2400 ml Balance 20 ml 841 ml -1150 ml -111 ml Intake Oral 200 ml 400 ml IV Total 841 ml 1869 ml Tube Irrigant 20 ml 20 ml Output Urine Total 1350 ml 2400 ml # Voids 3 4 Exam General: Alert, Oriented X3, Cooperative, No Acute Distress Head: Normal Eyes: Scleral Anicteric Nose: Mucous Membr Moist/[place] Mouth: Mucous Membr Moist/[place] Neck: Supple Chest & Lungs: Chest Wall Normal, Clear to auscultation bilat Cardiovascular: Regular Rate/Rhythm Abdomen: Non-tender, Non-distended, Normoactive bowel tones, Soft Extremities: Edema (2+ pitting edema in LE bilat) Neurological: Grossly Neurologically Intact, Normal Speech IVs and Medications Medications Reviewed: Medications were reviewed in detail Lab and Diagnostics Result Diagram: 10/27/16 0530 10/28/16 0555 X-Rays, CTs and MRIs PROCEDURE: X-RAY CHEST ONE VIEW, PORTABLE ([id number]) INDICATIONS: CONGESTIVE HEART FAILURE TECHNIQUE: One view of the chest was acquired. COMPARISON: [facility], CR, XR CHEST 1VW (PORTABLE), 02/26/2016, 23: 16. FINDINGS: Surgical changes and devices: Sternotomy wires and cardiac pacer Lungs and pleura: No pleural effusions or pneumothorax. Lungs are clear. Mediastinum: Mediastinal contours appear normal. Heart size is normal. Bones and chest wall: No suspicious bony lesions. Overlying soft tissues appear unremarkable. IMPRESSION: No acute disease Dictated by: Nathan Hernandez M.D. on 10/26/2016 at 20:41 Approved by: Nathan Hernandez M.D. on 10/26/2016 at 20:41 Assessment & Plan 76-year-old male patient with history of insulin-dependent diabetes, CAD status post CABG, valvular disease status post replacement, chronic kidney disease and congestive heart failure presented to the ER with the complaint of increasing weakness. Patient reports that for the past 3-4 weeks he has been noticing worsening weakness. He states that weakness began when he started taking metolazone which is a new medication prescribed by his airworthiness safety inspector. # Acute generalized weakness, present on admission, improving - Likely secondary to underlying dehydration, ANGELINA and associated electrolyte imbalance - c/w rehydration - replete electrolytes as needed - PT evaluation # Acute kidney injury in the setting of chronic kidney disease stage III, present on admission, improving - Likely secondary to dehydration from aggressive diuresis - Pt recently started on Metolazone by his Promotions Producer (Dr. Guerrero) - c/w gentle IVF - Continue to monitor - Nephrology Consulted today. will f/u w/ recs # Acute hyponatremia, present on admission, improving - likely secondary to dehydration from over-diuresing - continue with hydration - hold diuretics and f/u w/ nephrology recs. # Acute hypokalemia - replete and f/u # Acute hyperglycemia in the setting of insulin-dependent diabetes mellitus, present on admission, improving - Glucose on admission 645 - Pt admitted he had not been taking Lantus for 2-3 wks, if not longer - Lantus 48 units administered and to be continued (this is pt's reported home dose) - c/w ISS - A1C 13.3 # Chronic diastolic congestive heart failure, presumed stable - Echo 10/27 showing EF 65-70% and grade I diastolic dysfunction - Gentle hydration, but will monitor for fluid overload and adjust accordingly. # Hypertension, stable - c/w home BP meds # Paroxysmal A. fib, stable - Continue with warfarin, pharmacy to dose - f/u daily INR # Elevated troponin without any reported chest pain - Pt denies any chest pain or pressure - likely chronic and amplified by underlying ANGELINA Dispo: 1-2 days VTE Mechanical Devices: Intermittant Pneumatic CD Resuscitation Status: CPR: Attempt Resuscitation Time spent 35 min Eyad Sharma Oct 28, 2016 14:40
--- NOTE | 2016-10-28 16:52 | CONS ---
[address] [address] CONSULTATION REPORT PATIENT: JACKY MOODY : 1940 MR#: [id number] ADMIT: 10/26/2016 JOB ID: [id number] DATE OF SERVICE: 10/28/2016 ATTENDING PHYSICIAN: Eyad Sharma MD HISTORY OF PRESENT ILLNESS: The patient is a very pleasant 76-year-old white male who was admitted to [facility] for acute kidney injury secondary to hypotension and dehydration. Renal consultation is being sought for further evaluation of his acute kidney injury. He has a history of chronic kidney disease and normally runs a creatinine approximately 1.6-1.7 which would put him in a stage 3 kidney disease. The etiology of his chronic kidney disease is due to longstanding diabetes with diabetic nephropathy along with hypertension with hypertensive heart disease and hypertensive nephrosclerosis. He is normally followed by an outside coil inspector. He states that over the last 1-2 months he has had a progressive increase in lower extremity edema, increased abdominal girth, paroxysmal nocturnal dyspnea, progressive dyspnea on exertion, and intermittently resting dyspnea. He states that he has had some nocturia along with this. He denies any chest pain, cough, wheezing, hematuria, fever, chills, nausea, vomiting, or diarrhea. His furosemide dose was recently increased to 160 twice a day and metolazone was added. He states that he became quite weak and in the emergency room he was relatively hypotensive with a systolic blood pressure in the one-teen range. His BUN and creatinine at time of admission were 51 and 2.58. He had a metabolic alkalosis associated with this. The diuretics were stopped and he was cautiously hydrated with potassium supplementation. An echocardiogram was obtained and he was found to have concentric left ventricular hypertrophy with an ejection fraction of approximately 55% to 60% and diastolic dysfunction. This morning his BUN and creatinine were 44 and 1.93, which is close to his baseline. His hemoglobin A1c is 13.3. He states that he is breathing better but still complains of some increasing abdominal girth. 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 PAST SURGICAL HISTORY: Significant for hernia repair, aortic valve replacement, coronary artery bypass graft, and cataract surgery. ALLERGIES: LISINOPRIL MORPHINE. SOCIAL HISTORY: He has a remote history of tobacco use but quit a number of years ago. He takes ethanol occasionally. MEDICATIONS: At time of my evaluation include warfarin, potassium chloride, isosorbide dinitrate, insulin. REVIEW OF SYSTEMS: As detailed above. Otherwise is unremarkable. PHYSICAL EXAMINATION: Revealed a mildly obese 76-year-old white male who was alert and oriented x3, in no distress at time of my evaluation. HEENT examination was remarkable for some mild to moderate bilateral conjunctival injection. There was no evidence of any pale sclerae. Neck is supple, without adenopathy or thyromegaly. There was some mild jugular venous distention at 60 degrees elevation. Lungs were clear to auscultation. Heart was irregularly irregular. Abdomen was distended, with some mild caput medusa noted. There was evidence of a ventral hernia but no incarceration. Bowel sounds were slightly diminished. There was no tenderness, rebound, or guarding noted. There did appear to be some hepatomegaly. Hepatojugular reflux was negative. Extremities showed some mild edema and half and half nails. There was no clubbing or cyanosis. Skin turgor was good. LABORATORY EXAMINATION: As noted above. Today his hemoglobin is 13.4. Sodium is 137, potassium 3.3, chloride 97, bicarbonate 27, BUN and creatinine of 44 and 1.93. His glucose is 158. Serum albumin was 3.1. Spot urinalysis showed a specific gravity of 1.020. Tests for protein, glucose, and occult blood were positive. Microscopic examination was unremarkable. IMPRESSION: 1. Acute kidney injury secondary to transient intravascular volume depletion and hypotension. 2. Diabetic nephropathy. 3. Hypertension with hypertensive heart disease and hypertensive nephrosclerosis with congestive heart failure. 4. Right-sided congestive heart failure with diastolic dysfunction. 5. Baseline chronic kidney disease stage 3/4. RECOMMENDATION: I would like to continue to replace his potassium and cautious hydration. However, I feel he is probably very close to his baseline. Once oral diuretics are restarted, I would recommend switching to torsemide as opposed to furosemide because of better oral absorption and a bit longer half life. I would also like to get an abdominal ultrasound to evaluate the presence of ascites. Once again, I would like to thank you for allowing me to participate in the care of this most pleasant and interesting patient. I will be following him closely with you.
[2016-10-28 17:11] VITALS: BP 171/77; PULSE 81; RESP 22; O2SAT 95
[2016-10-28] MEDS: Polyethylene Glycol (PEG) 17 Gm Powder PO PRN (17:40)
--- NOTE | 2016-10-28 17:49 | DRSVH ---
PROCEDURE: US RENAL SONOGRAM INDICATIONS: eladia TECHNIQUE: Real-time scanning was performed of the kidneys and bladder, with image documentation. COMPARISON: None. FINDINGS: Kidneys: Kidneys are normal in size. Right kidney measures 11.8 cm long; left kidney measures 13.5 cm long. Right renal cortical thickness is 1.3 cm; left renal cortical thickness is 1.4 cm. Renal c ortical echotexture is normal. No hydronephrosis. No suspicious solid mass lesions. Bilateral renal cysts are present. Right interpolar renal calcification measuring 19 mm. Bladder: Pre-void bladder volume is 527 mL. Post-void residual is 0 mL. Pre-void images demonstrat e no intraluminal masses or stones. On pre-void images, bilateral ureteral jets are noted with color Doppler interrogation. (Of note, ureteral jets may not be detectable in up to 25% of cases due to i nsufficient differences in specific gravity between ureteral and bladder urine). Miscellaneous: No free pelvic fluid. IMPRESSION: 1. No hydronephrosis. 2. Nonobstructing right interpolar nephrolith. Dictated by: Sissy Alfaro M.D. on 10/28/2016 at 17:45 Approved by: Sissy Alfaro M.D. on 10/28/2016 at 17:46
--- NOTE | 2016-10-28 18:41 | NUR ---
Blood Sugar: Patients blood sugars have been elevated today. His lunch BS was 322 and he was given 10 units of Lispro sliding scale. his dinner BS was 363 and he was given 12 units of sliding scale . was paged with this information for his evaluation.
[2016-10-28 20:44] VITALS: BP 158/72; PULSE 74; RESP 20; O2SAT 96
[2016-10-28] MEDS: Isosorbide Mononitrate 60 mg ER24 Tablet PO SCH (21:07)
[2016-10-28] MEDS: Insulin GLARgine 100 Unit/mL Syringe SUBQ SCH (21:09)
[2016-10-29] VITALS (11 sets, daily range): BP systolic 138–199; BP diastolic 68–93; PULSE 76–98; RESP 18–20; O2SAT 95–100
--- NOTE | 2016-10-29 04:39 | NUR ---
BG/activity Pt's BG @ HS was 226. Lantus and 2unit of Lispro given per sliding scale. BG went down to 114 around 3AM. Pt bedrest, using urinal at bedside this shift.
[2016-10-29 06:58] LABS: INR 2.44 ratio
--- NOTE | 2016-10-29 07:32 | PCM.PHAPRO ---
Progress worsening weakness Date Oct 27-Sep 1-Oct 29-Oct INR 2.32 2.01 2.44 2.44 INR change -0.31 0.43 Warf Dose 3.5 3.5 3 3 Obinna Aguilar Oct 29, 2016 07:32
[2016-10-29] MEDS: Insulin LISPRO 300 Unit/3 mL Inj SUBQ SCH ×4 (07:42→21:51)
[2016-10-29] MEDS: Polyethylene Glycol (PEG) 17 Gm Powder PO PRN (09:18)
--- NOTE | 2016-10-29 11:41 | PCM.PNMED ---
Subjective Date of Service Oct 29, 2016 Subjective Patient has been improving with the exception of some nausea and vomiting this morning. He denies any chest pain fever, chills, orthopnea, or wheezing. His blood pressures have ranged between 30 and 160 and his intake and output have been 1875 in and 2595 out. This morning his sodium is 137, potassium 3.8, chloride 110, bicarbonate of 30, BUN and creatinine were 36 and 1.79. I feel it is probably close to his baseline. Exam Vital Signs Vital Sign - Last Date Time Temp Pulse Resp B/P Pulse Ox O2 Delivery O2 Flow Rate FiO2 10/29/16 09:34 36.6 86 18 146/73 95 Room Air 10/29/16 05:02 2.00 Intake and Output 10/28/16 10/28/16 10/29/16 Cumulative From/Thru 15:00 23:00 07:00 10/26/16 18:10 - 10/29/16 06:23 Intake Total 1675 ml 150 ml 4114 ml Output Total 1245 ml 675 ml 4320 ml Balance 430 ml -525 ml -206 ml Intake Oral 475 ml 150 ml 1025 ml IV Total 1200 ml 3069 ml Tube Irrigant 20 ml Output Urine Total 1245 ml 675 ml 4320 ml # Voids 4 Exam Neck is supple without adenopathy thyromegaly or jugular venous distention. Lungs were clear to auscultation. Heart is regular rhythmical with a soft systolic murmur. Abdomen soft with slightly diminished bowel sounds. There is no tenderness, rebound, guarding, masses, or hepatosplenomegaly. Extremities do not show any evidence of any clubbing cyanosis or edema. Skin turgor is good no show evidence of any rashes. Lab and Diagnostics Result Diagram: 10/27/16 0530 10/29/16 0540 X-Rays, CTs and MRIs PROCEDURE: X-RAY CHEST ONE VIEW, PORTABLE ([id number]) INDICATIONS: CONGESTIVE HEART FAILURE TECHNIQUE: One view of the chest was acquired. COMPARISON: [facility], CR, XR CHEST 1VW (PORTABLE), 02/26/2016, 23: 16. FINDINGS: Surgical changes and devices: Sternotomy wires and cardiac pacer Lungs and pleura: No pleural effusions or pneumothorax. Lungs are clear. Mediastinum: Mediastinal contours appear normal. Heart size is normal. Bones and chest wall: No suspicious bony lesions. Overlying soft tissues appear unremarkable. IMPRESSION: No acute disease Dictated by: Nathan Hernandez M.D. on 10/26/2016 at 20:41 Approved by: Nathan Hernandez M.D. on 10/26/2016 at 20:41 Assessment & Plan Impression #1 acute kidney injury which appears to be resolving number to diabetic nephropathy #3 hypertension with hypertensive heart disease and hypertensive nephrosclerosis Recommendations #1 from my point of view he looks as if he is close to his baseline creatinine. He could probably go home later today or tomorrow as long as his nausea is covered. I would recommend sending him home on torsemide 20 mg twice a day to start in the next several days. He can follow up with his baby attendant in the next week or 2. VTE Mechanical Devices: Intermittant Pneumatic CD Resuscitation Status: CPR: Attempt Resuscitation Jesus Manuel Whitman DO Oct 29, 2016 11:41
--- NOTE | 2016-10-29 13:16 | NUR ---
Social Work: Readiness for d/c Data: Pt is on day 3 of hospitalization. EMR reviewed, pt discussed in rounds. MD states pt likely ready for d/c tomorrow. SODA FOUNTAIN MANAGER met with pt to discuss d/c plan. Pt states she has not yet talked with his daughter about staying with her and states he most likely will just go home. He states he will talk with her when she gets to the hospital after work today and talk about it. Pt continues to decline HH if it is at his home as he feels that he does not want to be liable for them on his property. SODA FOUNTAIN MANAGER inquired further and pt states that he has lived on this property since 1979 and that he does not want them on his property. PT plans to work with pt this afternoon. SODA FOUNTAIN MANAGER will follow up regarding HH need after PT sees pt today. SODA FOUNTAIN MANAGER will continue to follow. Assessment: Pt who is independent at baseline. Plan: Pt will d/c home via POV with daughter declining HH or to his daughter's home with HH. SODA FOUNTAIN MANAGER will continue to follow. TYLER Landaverde
--- NOTE | 2016-10-29 15:07 | PCM.PNMED ---
Subjective Date of Service Oct 29, 2016 Subjective complains of acute nausea this am otherwise denies any other new issues/ complaints. Exam Vital Signs Vital Sign - Last Date Time Temp Pulse Resp B/P Pulse Ox O2 Delivery O2 Flow Rate FiO2 10/29/16 14:08 94 176/72 100 10/29/16 14:04 36.4 18 Room Air 10/29/16 05:02 2.00 Intake and Output 10/28/16 10/28/16 10/29/16 Cumulative From/Thru 15:00 23:00 07:00 10/26/16 18:10 - 10/29/16 06:23 Intake Total 1675 ml 150 ml 4114 ml Output Total 1245 ml 675 ml 4320 ml Balance 430 ml -525 ml -206 ml Intake Oral 475 ml 150 ml 1025 ml IV Total 1200 ml 3069 ml Tube Irrigant 20 ml Output Urine Total 1245 ml 675 ml 4320 ml # Voids 4 Exam General: Alert, Oriented X3, Cooperative, No Acute Distress Head: Normal Eyes: Scleral Anicteric Nose: Mucous Membr Moist/[place] Mouth: Mucous Membr Moist/[place] Neck: Supple Chest & Lungs: Chest Wall Normal, Clear to auscultation bilat Cardiovascular: Regular Rate/Rhythm Abdomen: Non-tender, Non-distended, Normoactive bowel tones, Soft Extremities: Edema (2+ pitting edema in LE bilat) Neurological: Grossly Neurologically Intact, Normal Speech IVs and Medications Medications Reviewed: Medications were reviewed in detail Lab and Diagnostics Result Diagram: 10/27/16 0530 10/29/16 0540 X-Rays, CTs and MRIs PROCEDURE: X-RAY CHEST ONE VIEW, PORTABLE ([id number]) INDICATIONS: CONGESTIVE HEART FAILURE TECHNIQUE: One view of the chest was acquired. COMPARISON: [facility], CR, XR CHEST 1VW (PORTABLE), 02/26/2016, 23: 16. FINDINGS: Surgical changes and devices: Sternotomy wires and cardiac pacer Lungs and pleura: No pleural effusions or pneumothorax. Lungs are clear. Mediastinum: Mediastinal contours appear normal. Heart size is normal. Bones and chest wall: No suspicious bony lesions. Overlying soft tissues appear unremarkable. IMPRESSION: No acute disease Dictated by: Nathan Hernandez M.D. on 10/26/2016 at 20:41 Approved by: Nathan Hernandez M.D. on 10/26/2016 at 20:41 Assessment & Plan 76-year-old male patient with history of insulin-dependent diabetes, CAD status post CABG, valvular disease status post replacement, chronic kidney disease and congestive heart failure presented to the ER with the complaint of increasing weakness. Patient reports that for the past 3-4 weeks he has been noticing worsening weakness. He states that weakness began when he started taking metolazone which is a new medication prescribed by his sumac tanner. # Acute generalized weakness, present on admission, improving - Likely secondary to underlying dehydration, ANGELINA and associated electrolyte imbalance - replete electrolytes as needed - PT evaluation # Acute kidney injury in the setting of chronic kidney disease stage III, present on admission, improving - Likely secondary to dehydration from aggressive diuresis - Pt recently started on Metolazone by his Financial Recording Clerk (Dr. Guerrero) - Continue to monitor - appreciate Nephrology Consult. will f/u w/ recs - Torsemide 20 mg twice a day to start in the next several days. - Follow up with his sumac tanner in the next week or 2. # Acute nausea. - unclear etiology - supportive care and f/u # Acute hyponatremia, present on admission, improving - likely secondary to dehydration from over-diuresing - hold diuretics and f/u w/ nephrology recs. # Acute hypokalemia - replete and f/u # Acute hyperglycemia in the setting of insulin-dependent diabetes mellitus, present on admission, improving - Glucose on admission 645 - Pt admitted he had not been taking Lantus for 2-3 wks, if not longer - Lantus 48 units administered and to be continued (this is pt's reported home dose) - c/w ISS - A1C 13.3 # Chronic diastolic congestive heart failure, presumed stable - Echo 10/27 showing EF 65-70% and grade I diastolic dysfunction - Gentle hydration, but will monitor for fluid overload and adjust accordingly. # Hypertension, stable - c/w home BP meds # Paroxysmal A. 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 He could probably go home later today or tomorrow as long as his nausea is covered. I would recommend sending him home on VTE Mechanical Devices: Intermittant Pneumatic CD Resuscitation Status: CPR: Attempt Resuscitation Eyad Sharma Oct 29, 2016 15:07
--- NOTE | 2016-10-29 19:22 | NUR ---
Activity: Patient had an uneventful day. He has been constipated and was given laxatives and warm prune juice without results at this time.
[2016-10-29] MEDS ORDERED: Labetalol 5 mg/mL 4 mL Inj IVPUSH ONE (21:30)
[2016-10-29] MEDS: Isosorbide Mononitrate 60 mg ER24 Tablet PO SCH (21:50)
[2016-10-29] MEDS: Insulin GLARgine 100 Unit/mL Syringe SUBQ SCH (21:50)
[2016-10-30 00:31] VITALS: BP 190/75; PULSE 78; RESP 18; O2SAT 94
[2016-10-30 05:29] LABS: Mean Corpuscular Hemoglobin 29.3 pg (27.0-35.0); Mean Corpuscular Volume 86.6 fL (81-100)
[2016-10-30 05:37] VITALS: BP 138/63; PULSE 72; RESP 18; O2SAT 92
[2016-10-30 05:40] LABS: INR 2.57 ratio
[2016-10-30 05:59] LABS: Magnesium 1.7 mg/dL (1.6-2.6)
[2016-10-30 08:00] VITALS: PULSE 96
[2016-10-30] MEDS: Insulin LISPRO 300 Unit/3 mL Inj SUBQ SCH ×2 (08:53→12:09)
[2016-10-30] MEDS: Polyethylene Glycol (PEG) 17 Gm Powder PO PRN (08:53)
[2016-10-30 10:08] VITALS: BP 150/73; PULSE 87; RESP 18; O2SAT 94
[2016-10-30] MEDS ORDERED: TORS20TA3 PO (10:52)
[2016-10-30] MEDS ORDERED: INSU100I13 SUBQ (10:52)
[2016-10-30] MEDS ORDERED: INSU100C8 SUBQ (10:52)
--- NOTE | 2016-10-30 10:58 | PCM.DIMED ---
Discharge Instructions Date of Service Oct 30, 2016 Dates of Hospitalization Oct 26, 2016 at 21:49 Discharge Diagnosis Discharge Diagnosis # Acute generalized weakness, present on admission, improved # Acute kidney injury in the setting of chronic kidney disease stage III, present on admission. Resolved and back to baseline - Likely secondary to dehydration from aggressive diuresis # Acute nausea. Resolved. - unclear etiology # Acute hyponatremia, present on admission, Resolved. - likely secondary to dehydration from over-diuresing # Acute hypokalemia. Resolved. # Acute hyperglycemia in the setting of insulin-dependent diabetes mellitus, present on admission, improved. - HgA1c 13.3 # Chronic diastolic congestive heart failure, presumed stable - Echo 10/27 showing EF 65-70% and grade I diastolic dysfunction # Hypertension, stable # Paroxysmal A. fib, stable # Chronic anticoagulation with Warfarin - INR 2.57 on day of discharge # Elevated troponin without any reported chest pain - likely chronic and amplified by underlying acute kidney injury Diet Low fat, Low Sodium, Heart Healthy, Diabetic Activity Home Health Phyical Therapy Call your provider Fever or Chills, Shortness of breath, Bleeding, Chest pain, Vomitting Patient Instructions Seek immediate medical attention if any new or worsening signs or symptoms occur. Follow-up plan 1. Followup with primary care provider in 7-10 days 2. Followup with nephrology (Dr. Guerrero) in one week as previously scheduled. Follow-up Provider: Obinna Barrios MD Follow-up with PCP in: 1 week Provider: Donna Guerrero MD Follow-up in: 1 week Eyad Sharma Oct 30, 2016 10:58
--- NOTE | 2016-10-30 11:16 | NUR ---
Social Work: Discharge Data: Pt is on day 4 of hospitalization. EMR reviewed. D/C orders are in. PT recommending home with outpt PT. No need for HH. PIG IRON LOADER met with pt to discuss. Pt states his daughter will drive him home and he understands he no longer needs HH. PIG IRON LOADER will continue to follow if needs arise. Assessment: Pt who is independent at baseline. Plan: Pt will d/c home via POV with pt's daughter. No further d/c planning needs at this time. PIG IRON LOADER will continue to follow if needs arise. TYLER Landaverde
[2016-10-30] MEDS ORDERED: NITR0.4T6 SL (12:23)
--- NOTE | 2016-10-30 12:30 | NUR ---
Discharge Nursing Note: Patient was discharged to home at 1230. His IV was removed intact. His telemetry was discontinued. All of his discharge information was reviewed with him and his questions were answered to his satisfaction. Patient was given his RX scripts to be filled at his pharmacy. He was brought to the hospital lobby in a wheelchair by nursing staff member and he was driven to home by his daughter.
--- NOTE | 2016-10-30 16:44 | PCM.DC.MED ---
Discharge Summary Date of Service Oct 30, 2016 Dates of Hospitalization Date of Hospital Admission Oct 26, 2016 at 21:49 Date of Discharge: Oct 30, 2016 Providers: Admitting Physician: Jacky Thomas MD Primary Care Physician: Obinna Barrios MD Attending Physician: Jacky Thomas MD Diagnosis at Time of Discharge Diagnosis at Time of Discharge # Acute generalized weakness, present on admission, improved # Acute kidney injury in the setting of chronic kidney disease stage III, present on admission. Resolved and back to baseline - Likely secondary to dehydration from aggressive diuresis # Acute nausea. Resolved. - unclear etiology # Acute hyponatremia, present on admission, Resolved. - likely secondary to dehydration from over-diuresing # Acute hypokalemia. Resolved. # Acute hyperglycemia in the setting of insulin-dependent diabetes mellitus, present on admission, improved. - HgA1c 13.3 # Chronic diastolic congestive heart failure, presumed stable - Echo 10/27 showing EF 65-70% and grade I diastolic dysfunction # Hypertension, stable # Paroxysmal A. fib, stable # Chronic anticoagulation with Warfarin - INR 2.57 on day of discharge # Elevated troponin without any reported chest pain - likely chronic and amplified by underlying acute kidney injury Consultations 1. Nephrology (Dr. Whitman) Procedures XRay, CTs & MRIs PROCEDURE: X-RAY CHEST ONE VIEW, PORTABLE ([id number]) INDICATIONS: CONGESTIVE HEART FAILURE TECHNIQUE: One view of the chest was acquired. COMPARISON: [facility], , XR CHEST 1VW (PORTABLE), 02/26/2016, 23: 16. FINDINGS: Surgical changes and devices: Sternotomy wires and cardiac pacer Lungs and pleura: No pleural effusions or pneumothorax. Lungs are clear. Mediastinum: Mediastinal contours appear normal. Heart size is normal. Bones and chest wall: No suspicious bony lesions. Overlying soft tissues appear unremarkable. IMPRESSION: No acute disease Dictated by: Nathan Hernandez M.D. on 10/26/2016 at 20:41 Approved by: Nathan Hernandez M.D. on 10/26/2016 at 20:41 Other Diagnostics Date of Service: 10/28/16 1602 PROCEDURE: US RENAL SONOGRAM IMPRESSION: 1. No hydronephrosis. 2. Nonobstructing right interpolar nephrolith. Dictated by: Sissy Alfaro M.D. on 10/28/2016 at 17:45 Approved by: Sissy Alfaro M.D. on 10/28/2016 at 17:46 Brief History As noted in H&P by Dr. Fraire: 76-year-old male patient with history of insulin-dependent diabetes, CAD status post CABG, valvular disease status post replacement, chronic kidney disease and congestive heart failure presented to the ER with the complaint of increasing weakness. Patient reports that for the past 3-4 weeks he has been noticing worsening weakness. He states that weakness began when he started taking metolazone which is a new medication prescribed by his lacquer mixer. Patient states that his lacquer mixer has been very focused on decreasing the amount of edema in his lower extremities, and the started this new medication. Patient reports that he has been urinating significant amounts, but has not noted any decrease in his lower extremity edema. Patient reports that he has been feeling very weak, stumbling when he walks, and feeling as though his legs are very weak. Patient reports he has also not been taking his Lantus for the past 2-3 weeks as he ran out. Hospital Course # Acute generalized weakness, present on admission, improved - Likely secondary to underlying dehydration, ANGELINA and associated electrolyte imbalance # Acute kidney injury in the setting of chronic kidney disease stage III, present on admission, improved - Likely secondary to dehydration from aggressive diuresis - Pt recently started on Metolazone by his Workers' Compensation Claims Supervisor (Dr. Guerrero) - diuretic initially were held during this hospital and per nephrology recommendations he will be discharged home on Torsemide 20 bid # Acute nausea. Resolved - unclear etiology. # Acute hyponatremia, present on admission, improved - likely secondary to dehydration from over-diuresing # Acute hypokalemia. Resolved # Acute hyperglycemia in the setting of insulin-dependent diabetes mellitus, present on admission, improving - Glucose on admission 645 - Pt admitted he had not been taking Lantus for 2-3 wks, if not longer - Lantus 48 units administered and to be continued (this is pt's reported home dose) - A1C 13.3 # Chronic diastolic congestive heart failure, presumed stable - Echo 10/27 showing EF 65-70% and grade I diastolic dysfunction - Gentle hydration, but will monitor for fluid overload and adjust accordingly. # Hypertension, stable - c/w home BP meds # Paroxysmal A. fib, stable - Continue with warfarin # Elevated troponin without any reported chest pain - Pt denies any chest pain or pressure - likely chronic and amplified by underlying ANGELINA by day of d/c lungs CTA bilat. abdomen soft, nt, nd, +bs Exam Vital Signs (Last) Date Time Temp Pulse Resp B/P Pulse Ox O2 Delivery O2 Flow Rate FiO2 10/30/16 10:08 36.9 87 18 150/73 94 Room Air 10/29/16 05:02 2.00 Test 10/26/16 18:48 10/26/16 21:18 10/26/16 22:45 10/27/16 05:30 Osmolality 303 (275-300) Hold Roberto Top Tube Received (Received) Ketones Negative (Negative) Urine Color Straw (YELLOW) Urine Appearance Clear (CLEAR,HAZY) Urine pH 6.0 (5.0-8.0) Urine Specific Glendo 1.020 (1.003-1.035) Urine Protein 100mg/dL (NEG,TRACE) Urine Glucose (UA) 1000mg/dL (NEGATIVE) Urine Ketones Negativemg/dL (NEGATIVE) Urine Occult Blood Small (NEGATIVE) Urine Nitrite Negative (NEGATIVE) Urine Bilirubin Negative (NEGATIVE) Urine Urobilinogen Normalmg/dL (NORMAL) Urine Leukocyte Esterase Negative (NEGATIVE) Urine RBC 0-2/hpf (0-2) Urine WBC 0-5/hpf (0-5) Urine Epithelial Cells None/hpf (NONE-MOD) Urine Crystals None seen (NONE SEEN) Urine Bacteria None/hpf (NONE-FEW) Urine Hyaline Casts None/lpf (NONE) Urine Granular Casts None seen (NONE SEEN) Urine Waxy Casts None seen (NONE SEEN) Urine Red Blood Cell Casts None seen (NONE SEEN) Urine White Blood Cell Casts None seen (NONE SEEN) Urine Mucus None seen (None Seen) Urine Trichomonas None seen (NONE SEEN) Urine Yeast None (NONE SEEN) Urinalysis Comment None Urine Culture Reflexed Not indicated Hemoglobin A1c 13.3% (4.8-5.6) Pro-B-Type Natriuretic Peptide 2190pg/mL (0-486) Neutrophils (%) (Auto) 64.3% (40-74) Lymphocytes (%) (Auto) 24.2% (14-46) Monocytes (%) (Auto) 9.2% (4-12) Eosinophils (%) (Auto) 2.1% (0-5) Basophils (%) (Auto) 0.2% (0-3) Total Bilirubin 0.5mg/dL (0.0-1.2) Aspartate Amino Transf (AST/SGOT) 21U/L (0-50) Alanine Aminotransferase (ALT/SGPT) 20U/L (0-44) Alkaline Phosphatase 107U/L (25-160) Troponin T 0.046ug/L (0.0-0.011) Total Protein 6.0g/dL (6.4-8.4) Albumin 3.1g/dL (3.4-5.0) Triglycerides Level 260mg/dL (0-149) Cholesterol Level 167mg/dL (100-199) LDL Cholesterol, Calculated 65.000mg/dL (0-99) VLDL Cholesterol 52.000mg/dL HDL Cholesterol 50mg/dL (>39) Cholesterol/HDL Ratio 3.34 (0.0-4.4) Test 10/30/16 05:20 White Blood Count 4.0th/mm3 (3.8-10.1) Red Blood Count 4.34mil/mm3 (4.40-5.80) Hemoglobin 12.7g/dL (13.8-17.2) Hematocrit 37.6% (41.0-50.0) Mean Corpuscular Volume 86.6fL (81-100) Mean Corpuscular Hemoglobin 29.3pg (27.0-35.0) Mean Corpuscular Hemoglobin Concent 33.8% (32.0-37.0) Red Cell Distribution Width 12.8% (12.3-15.4) Platelet Count 154bil/L (150-400) Prothrombin Time 28.0sec (8.1-12.5) Prothromb Time International Ratio 2.57ratio Sodium Level 138mEq/L (134-144) Potassium Level 4.0mEq/L (3.5-5.2) Chloride Level 99mEq/L (97-108) Carbon Dioxide Level 27mmol/L (18-29) Blood Urea Nitrogen 31mg/dL (8-27) Creatinine 1.73mg/dL (0.76-1.27) Estimat Glomerular Filtration Rate 41mL/min (>59) Glucose Level 151mg/dL (60-99) Calcium Level 8.2mg/dL (8.5-10.1) Magnesium Level 1.7mg/dL (1.6-2.6) Discharge Medications Discharge Medications Cholecalciferol (Vitamin D3) (Vitamin D3) 2,000 Unit Tablet 2,000 UNIT PO DAILY (Reported) Cyanocobalamin (Vitamin B-12) (Vitamin B-12) 1,000 Mcg Tablet 1,000 MCG PO DAILY (Reported) Desipramine (Desipramine) 150 Mg Tab 150 MG PO HS (Reported) Ferrous Sulfate (Ferrous Sulfate) 325 Mg Tablet 325 MG PO DAILY (Reported) Insulin Aspart (NovoLOG U100 Insulin Vial) 100 U/Ml U 10 UNIT SUBQ DAILYWD Prescribed by: ABBIE NIELSON MD Insulin Glargine (Lantus U100 Solostar Insulin Pen) 100 Unit/1 Ml Insuln.pen 48- 58 UNIT SUBQ HS Pt ran out 1 week ago, supplementing with Novolog Prescribed by: ABBIE NIELSON MD Isosorbide MN ER (Isosorbide MN ER) 60 Mg Tab.er.24h 60 MG PO HS (Reported) Magnesium Oxide (Magnesium Oxide) 400 Mg Tablet 800 MG PO DAILY (Reported) Metoprolol Tartrate (Metoprolol Tartrate) 50 Mg Tablet 50 MG PO BID (Reported) Rosuvastatin Calcium (Rosuvastatin Calcium) 40 Mg Tablet 40 MG PO HS (Reported) Torsemide (Torsemide) 20 Mg Tablet 20 MG PO BID Prescribed by: ABBIE NIELSON MD Warfarin Sodium (Warfarin Sodium) 3 Mg Tablet 3.5 MG PO DAILY (Reported) As needed Docusate Sodium (Colace) 100 Mg Capsule 100 MG PO DAILY PRN PRN For Constipation (Reported) Nitroglycerin SL (Nitroglycerin SL) 0.4 Mg Tab.subl 0.4 MG SL Q5MIN PRN PRN For Chest Pain Prescribed by: ABBIE NIELSON MD Triamcinolone Acet (Triamcinolone Acetonide Cream) 1 Applic/0.25 Gm Cr 1 APPLIC EXT BID PRN PRN rash (Reported) Followup Plan Disposition: home Follow-up plan 1. Followup with primary care provider in 7-10 days 2. Followup with nephrology (Dr. Guerrero) in one week as previously scheduled. Discharge Diet: Low fat, Low Sodium, Heart Healthy, Diabetic Discharge Activity: Home Health Phyical Therapy Patient Instructions Seek immediate medical attention if any new or worsening signs or symptoms occur. Follow-up Provider: Obinna Barrios MD Follow-up with PCP in: 1 week Provider: Donna Guerrero MD Follow-up in: 1 week Time spent 35 min copies to: Donna Guerrero MD; Obinna Barrios MD, Masoud Oct 30, 2016 16:44
== END 2016-10-30 13:41 | disposition home or self-care (01) | DRG 641 ==
LOC: SED 18:03 → MPC 21:49
PROVIDERS: ADMIT Hospitalist; ATTEND Hospitalist
DX: E86.0 Dehydration (principal); I50.32 Chronic diastolic (congestive) heart failure; I13.0 Hypertensive heart and chronic kidney disease with heart failure and stage 1 through stage 4 chronic kidney disease, or unspecified chronic kidney disease; N17.9 Acute kidney failure, unspecified; T50.2X5A Adverse effect of carbonic-anhydrase inhibitors, benzothiadiazides and other diuretics, initial encounter; E87.1 Hypo-osmolality and hyponatremia; E11.22 Type 2 diabetes mellitus with diabetic chronic kidney disease; E11.65 Type 2 diabetes mellitus with hyperglycemia; N18.3 Chronic kidney disease, stage 3 (moderate); I48.0 Paroxysmal atrial fibrillation; Z79.01 Long term (current) use of anticoagulants; I25.10 Atherosclerotic heart disease of native coronary artery without angina pectoris; K21.9 Gastro-esophageal reflux disease without esophagitis; Z87.891 Personal history of nicotine dependence

== ENCOUNTER 2017-04-19 19:36 | Inpatient (IN) | payer MEDICARE, OTHER ==
[~2017-04-19] VITALS: Ht 180.3 cm; Wt 116.7 kg
[~2017-04-19 19:36] MED LIST changes: +CHOL200025 PO; -CRES20T PO; +CYAN10008 PO; +DOCU-41 PO; -DOCU100C8 PO; +FERR-83 PO; -FURO40TA4 PO; +INSU100C8 SUBQ; +ISOS60TA2 PO; -Isosorbide Mononitrate PO; +KEN25CR EXT; +MAGN400T4 PO; +ROSU40TA20 PO; +TORS20TA3 PO; -TR5C15 TOP
[2017-04-19 19:54] VITALS: BP 180/74; PULSE 60; RESP 24; O2SAT 98
--- NOTE | 2017-04-19 20:24 | ED.REPORT ---
HPI-Rash / Abscess Date of Service Apr 19, 2017 ED Provider: Dr. Terrazas Pt is a 76 year old male with a history of DM who presents to the ED with concerns for a right leg infection. He reports that his legs are typically swollen, but they are more severe than usual. He admits to fevers, chest pain and shortness of breath. He denies any nausea, vomiting, diarrhea, abdominal pain, or any other symptoms. He is a former smoker. Nursing Notes Stated Complaint: CELLULITIS Chief Complaint: Skin Rash/Abscess Nursing Notes Reviewed: Yes Allergies: Coded Allergies: morphine (Verified Adverse Reaction, Intermediate, Hallucinations, 04/19/17 ) lisinopril (Verified Adverse Reaction, Mild, Cough, 04/19/17) Scheduled Cholecalciferol (Vitamin D3) (Vitamin D3) 2,000 Unit Tablet 2,000 UNIT PO QAM Cyanocobalamin (Vitamin B-12) (Vitamin B-12) 1,000 Mcg Tablet 1,000 MCG PO QAM Desipramine (Desipramine) 150 Mg Tab 150 MG PO HS Ferrous Sulfate (Ferrous Sulfate) 325 Mg Tablet 325 MG PO QAM Insulin Aspart (NovoLOG U100 Insulin Vial) 100 U/Ml U 3-9 UNIT SUBQ TIDWM Insulin Detemir (Levemir U100 Insulin Vial) 100 Unit/1 Ml Vial 44 UNIT SUBQ HS Isosorbide MN ER (Isosorbide MN ER) 60 Mg Tab.er.24h 60 MG PO HS Magnesium Oxide (Magnesium Oxide) 400 Mg Tablet 800 MG PO QAM Metoprolol Tartrate (Metoprolol Tartrate) 50 Mg Tablet 50 MG PO BID Rosuvastatin Calcium (Rosuvastatin Calcium) 40 Mg Tablet 40 MG PO HS Torsemide (Torsemide) 20 Mg Tablet 40 MG PO BIDWM Warfarin Sodium (Warfarin Sodium) 3 Mg Tablet 3.5 MG PO DAILY EXCEPT WED/SAT 4.5 MG WED/SAT AND 3.5 MG ALL OTHER DAYS Warfarin Sodium (Warfarin Sodium) 3 Mg Tablet 4.5 MG PO WED/SAT 4.5 MG WED/SAT AND 3.5 MG ALL OTHER DAYS Scheduled PRN Docusate Sodium (Colace) 100 Mg Capsule 100 MG PO DAILY PRN PRN For Constipation Metolazone (Metolazone) 2.5 Mg Tablet 2.5 MG PO DAILY PRN PRN edema Nitroglycerin SL (Nitroglycerin SL) 0.4 Mg Tab.subl 0.4 MG SL Q5MIN PRN PRN For Chest Pain Sennosides (Senna) 8.6 Mg Tablet 17.2 MG PO DAILY PRN PRN For Constipation Triamcinolone Acet (Triamcinolone Acetonide Cream) 1 Applic/0.25 Gm Cr 1 APPLIC EXT BID PRN PRN rash TO SCALP General Time Seen by MD: 20:23 Chief Complaint Other (Leg infection) Hx Obtained From: Patient Arrived By: Walk-in Onset Occurred: 3 days ago Symptom Duration: Since onset Location: : Lower extremity Quality: Painful Severity: Current: Mild Severity: Maximum: Moderate Similar Sx Previous: Yes Past Medical History Past Medical History Prostate cancer s/p pelvic irradiation chronic kidney disease diabetic neuropathy depression Reports: Cancer, Congestive heart failure, Coronary artery disease, Diabetes mellitus, GERD, Hyperlipidemia, Hypertension, Stroke Past Surgical History lazer retinal surgery aortic valve replacement CABG 2009 to LAD and OM, pacemaker cararact extraction hernia repair Smoking History Former Smoker Social History Alcohol Use: Denies alcohol use Drug Use: Denies drug use Other Social History: Local resident Ambulatory Status Independent Review of Systems Constitutional: Reports: Chills, Fever, Weakness - generalized, Denies: Malaise Respiratory: Reports: Shortness of breath, Denies: Non-productive cough, Wheezing Cardiovascular: Reports: Chest pain, Denies: Syncope GI: Denies: Abdominal pain, Constipation, Diarrhea, Nausea, Vomiting Musculoskeletal: Reports: Extremity pain, Extremity swelling, Denies: Back pain Skin: Reports Rash Complete sys rev & neg: except as marked. Physical Exam Initial Vital Signs Vital Signs (First) Date Time Temp Pulse Resp B/P Pulse Ox O2 Delivery O2 Flow Rate FiO2 04/19/17 19:54 36.8 60 24 180/74 98 Room Air Initial VS: Reviewed Head / Eyes: Atraumatic, Normocephalic, PERRL ENT: Mucous membranes moist, Conjunctiva normal, No scleral icterus Neck: Supple, Non-tender, Full range of motion Respiratory: Breath sounds normal, Clear to auscultation, No respiratory distress Cardiovascular: Regular rate & rhythm, Heart sounds normal, Intact distal pulses Abdomen / GI: Soft, Non-tender, No guarding, No rebound, No distention Neurologic: Alert, Oriented, Nonfocal General/Constitutional: Awake, Alert Appearance / Presentation: Positive: Uncomfortable Skin: Atraumatic Lower Extremity / Pelvis / MS: Neurologic intact, Vascular intact Bilateral pitting edema Right worse than the left RIght with extensive redenning from the ankle up to the knee, with streaking up the medial aspect of the leg Red, hot and tender Interpretation & Diagnostics Lab Results Interpretation Result Diagram: 04/19/17202904/19/17 2030 Test 04/19/17 20:30 White Blood Count 4.2th/mm3 (3.8-10.1) Red Blood Count 3.92mil/mm3 (4.40-5.80) Hemoglobin 12.1g/dL (13.8-17.2) Hematocrit 34.8% (41.0-50.0) Mean Corpuscular Volume 88.8fL (81-100) Mean Corpuscular Hemoglobin 30.9pg (27.0-35.0) Mean Corpuscular Hemoglobin Concent 34.8% (32.0-37.0) Red Cell Distribution Width 12.9% (12.3-15.4) Platelet Count 190bil/L (150-400) Neutrophils (%) (Auto) 69.1% (40-74) Lymphocytes (%) (Auto) 19.5% (14-46) Monocytes (%) (Auto) 9.5% (4-12) Eosinophils (%) (Auto) 1.4% (0-5) Basophils (%) (Auto) 0.5% (0-3) Prothrombin Time 19.1sec (8.1-12.5) Prothromb Time International Ratio 1.76ratio Sodium Level 134mEq/L (134-144) Potassium Level 4.4mEq/L (3.5-5.2) Chloride Level 96mEq/L (97-108) Carbon Dioxide Level 24mmol/L (18-29) Blood Urea Nitrogen 41mg/dL (8-27) Creatinine 2.19mg/dL (0.76-1.27) Estimat Glomerular Filtration Rate 31mL/min (>59) Glucose Level 462mg/dL (60-99) Lactic Acid Level 1.6mmol/L (0.4-2.0) Calcium Level 8.3mg/dL (8.5-10.1) Total Bilirubin 0.2mg/dL (0.0-1.2) Aspartate Amino Transf (AST/SGOT) 23U/L (0-50) Alanine Aminotransferase (ALT/SGPT) 16U/L (0-44) Alkaline Phosphatase 106U/L (25-160) C-Reactive Protein 1.8mg/dL (0.0-0.5) Total Protein 6.9g/dL (6.4-8.4) Albumin 3.4g/dL (3.4-5.0) Re-Eval/Medical Decision Med Decision/Clinical Course Cellulitis with hyperglycemia and acute on chronic renal insufficiency. IV antibiotics indicated. Hospitalist admission. Source of Hx: Old records Re-Evaluation/Progress : Time of Eval: 21:37 Re-Evaluation/Progress Note: Pt is rechecked and informed of the plan to admit him at this time. He understands and agrees, all questions are addressed. Consultation : Referral / Consult Name: Maria Elena Campos Consulted With: Hospitalist Call Returned at: 21:50 Branding Machine Operator: Will see patient, Agrees with plan, Accepts admit Counseled Regarding: Diagnosis, Lab results, When/why to return to ED Discharge & Departure Impression: Primary Impression: Renal insufficiency Additional Impressions: Cellulitis Site of cellulitis: extremity Site of cellulitis of extremity: lower extremity Laterality: right Qualified Code: L03.115 - Cellulitis of right lower limb Hyperglycemia Disposition: ADMITTED TO HOSPITAL Discharge Condition All VS Reviewed: Yes Condition: Stable Referrals: Obinna Barrios MD (PCP) Donna Guerrero MD (Family) Erik Attestation Portions of this note were transcribed by Bella Leonard. I, Dr. Terrazas personally performed the history, physical exam and medical decision-making; I reviewed and confirmed the accuracy of the information in the transcribed note. Signed by: Erik Barlow, 04/19/2017 [id number] copies to: Donna Guerrero MD; Obinna Barrios MD, Todd P DO Apr 19, 2017 20:23 HANDY LEONARD Apr 19, 2017 20:53
[2017-04-19 20:49] LABS: BASOPHILS % (AUTO) 0.5 % (0-3); EOSINOPHILS % (AUTO) 1.4 % (0-5); MONOCYTES % (AUTO) 9.5 % (4-12); Mean Corpuscular Hemoglobin 30.9 pg (27.0-35.0); Mean Corpuscular Volume 88.8 fL (81-100); NEUTROPHILS % (AUTO) 69.1 % (40-74); Platelet Count 190 bil/L (150-400)
[2017-04-19] MEDS ORDERED: Piperacillin-Tazo 3.375 Gm Inj 3.375 GM in Dextrose 5% Minibag Plus 50 ML IV ONE (20:50)
[2017-04-19] MEDS ORDERED: Vancomycin Dose per Pharmacist XX SCH (20:50)
[2017-04-19] MEDS ORDERED: Vancomycin Inj 2,000 MG in 0.9% Sodium Chloride 500 ML IV ONE (21:00)
[2017-04-19 21:26] LABS: INR 1.76 ratio
[2017-04-19] MEDS ORDERED: WARF3TAB7 PO (21:48)
[2017-04-19] MEDS ORDERED: INSU100V4 SUBQ (21:48)
[2017-04-19] MEDS ORDERED: TORS20TA3 PO (21:48)
[2017-04-19] MEDS ORDERED: INSU100C8 SUBQ (21:48)
[2017-04-19] MEDS ORDERED: SENN-133 PO (21:50)
[2017-04-19] MEDS ORDERED: METO2.5T12 PO (21:50)
[2017-04-19] MEDS ORDERED: Polyethylene Glycol (PEG) 17 Gm Powder PO PRN (22:20)
[2017-04-19] MEDS ORDERED: Ondansetron 2 mg/mL 2 mL Inj IVPUSH PRN (22:20)
[2017-04-19] MEDS ORDERED: Insulin Human REGular Inj 100 UNIT in 0.9% Sodium Chloride-Pha MIX 100 ML IV SCH (22:25)
[2017-04-19] MEDS ORDERED: Vancomycin Dose per Pharmacist XX ONE (22:26)
[2017-04-19] MEDS ORDERED: Glucose 40% Oral Gel 15 Gm Tube PO PRN (23:05)
[2017-04-19] MEDS ORDERED: Dextrose 10% 250 ML IV PRN (23:15)
--- NOTE | 2017-04-19 23:15 | PCM.HPMED ---
Subjective Date of Service Apr 19, 2017 Primary Provider: Admitting Physician: Maria Elena Campos DO Primary Care Physician: Obinna Barrios MD Attending Physician: Maria Elena Campos DO Chief Complaint: leg pain History of Present Illness: Patient is a 76-year-old male with medical history significant for uncontrolled diabetes with peripheral neuropathy, chronic kidney disease stage III paroxysmal atrial fibrillation hypertension, and diastolic heart failure presents to the ED with right leg swelling. Per patient, right leg has been red and swollen for the past 3 days with associated increasing leg pain. Pain is exquisite. He denies any recent injuries, however patient does have peripheral neuropathy which limits the sensation in his lower legs. Patient denies any fevers, or chills. Patient did note to have some night sweats although he attributes this to his hyperglycemia yesterday. Patient stated his glucometer read as extremely high above 500 mg/DL. Patient reports polydipsia and polyuria. In the ED, patient vital remained stable. Lab CBC unremarkable WBC 4.2, CMP electrolytes unremarkable, BUN 41 creatinine 2.19, baseline creatinine is 1.7. Additionally glucose was 462. Lactic acid 1.6. Given physical findings possible cellulitis in the right lower leg, ED recommended that patient be admitted for further evaluation for cellulitis in addition to hyperglycemia. Review of Systems: A comprehensive review of systems was conducted with the patient and found to be negative except as above in the History of Present Illness. Allergies Coded Allergies: morphine (Verified Adverse Reaction, Intermediate, Hallucinations, 04/19/17 ) lisinopril (Verified Adverse Reaction, Mild, Cough, 04/19/17) Home Medications Per medication reconciliation listing, will need to verify Vitamin D1000 mL daily Despiramine 150 mg at bedtime Ferrous sulfide 325 mg daily NovoLog sliding scale Levemir 44u at bedtime Isosorbide and nightly Magnesium oxide 800 mg daily Metolazone 2.5 mg when necessary Metoprolol 50 mg twice a day Atorvastatin 40 mg daily at bedtime Torsemide 40 mg twice a day Warfarin 3.5 mg M,T,Th,F, 4.5mg Wednesday/Wednesday PMH Insulin-dependent diabetes mellitus. dx since 1976 Severe aortic stenosis status post aortic valve replacement Coronary artery disease status post CABG Paroxysmal A. fib that is post pacemaker placement Hypertension Hyperlipidemia Chronic kidney disease GERD Diabetic neuropathy Depression Cataracts History of CVA Congestive heart failure Spinal stenosis declined mild cytopenias Prostate cancer status post radiation and androgen deprivation Surgical History CABG Aortic valve replacement Cataract Hernia repair Family History Father lung cancer Mother Parkinson's Social History Hx Alcohol Use: Yes Hx Substance Use: No Hx Tobacco Use: Yes (smoked for 13 years, up to 3-1/2 packs a day, 40 years ago ) Smoking Status: Former Smoker Exam Vital Signs Vital Sign - Last Date Time Temp Pulse Resp B/P Pulse Ox O2 Delivery O2 Flow Rate FiO2 04/19/17 19:54 36.8 60 24 180/74 98 Room Air Exam General: No acute distress, appropriately interactive HEENT: Normocephalic, atraumatic. PERRLA, EOMI, Anicteric sclerae, moist conjunctivae. Bilateral reduced hearing Neck: No JVD, No bruits. No lymphadenopathy or thyromegaly. Cardiovascular: Regular rate and rhythm with 2+ systolic murmurs, no rubs, or gallops appreciated Pulmonary: b/l air sound with no crackles, wheezes, or rhonchi. no use of accessory muscles. Abdomen: +Bowel sound, Soft, nontender, nondistended. Extremities: No clubbing or cyanosis, no lymphedema, b/l pitting lower leg edema up to knee. Right lower leg erythema, calor, and painful. Border drawn. Skin: Normal temperature, turgor, and texture; no rash. No visualized skin ulcer. Neurological: CN II-VII grossly intact, moving equally on all 4 extremities Psychiatric: Normal mood and affect. 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 fib, hypertension, and diastolic heart results in 2 days acute right pain and swelling, admitted for cellulitis. Acute right lower leg Cellulitis -LRINEC Score 6, some suspicion for necrotizing fasciitis, patient with tenderness -Stat CT noncontrast lower leg, looking for abscess -Vancomycin IV per pharmacy -Blood culture pending Acute kidney injury in the setting of chronic kidney disease stage III, present on admission, ongoing -UA negative for any bacterial infection, does show high urine protein and high glucose -Likely secondary to dehydration, osmotic diuresed -Baseline Cr 1.73 -Gentle hydration with NS 100mls/hr -Continue to monitor with AM labs -Consider Nephrology Consult if not improving Hyperglycemia in the setting of insulin-dependent diabetes mellitus, present on admission, ongoing -Glucose on admission 462, last -Lantus 44 units nightly, high algorithm sliding scale lispro -Blood glucose fingerstick every 6 hours -A1c pending Congestive heart failure, presumed stable -Most recent echo did show a moderate concentric LVH with impaired diastolic relaxation, EF 65% -Gentle hydration, monitor for fluid Hypertension, presumed stable -home Torsemide 40mg daily, metopolol tartrate 50mg BID, metolazone 2.5mg prn -Holding torsemide and metolazone due to dehydration Paroxysmal A. fib, presumed stable -Continue with warfarin, pharmacy to dose -Current INR 1.79 Coronary artery disease -isosorbid MN 60mg daily -Atorvastatin 20 mg daily Depression -Desipramine 150mg HS CODE STATUS full code DVT prophylaxis wararin Patient Status: Patient is admitted under inpatient status with expected length of stay GREATER than 2 midnights due to severity of presenting symptoms, risk of adverse event, and complexity of treatment plan. VTE Prophylaxis: Sub-Q Heparin (Unfractionated) Resuscitation Status: CPR: Attempt Resuscitation Attending Statement The patient was seen and examined together with house staff on 04/19/2017 and I agree with the history, exam and plan as outlined in the note above. Michael De Leon DO Apr 19, 2017 23:15 Maria Elena Campos DO Apr 20, 2017 05:20
--- NOTE | 2017-04-19 23:38 | PCM.PHAPRO ---
Progress Date of Service: Apr 19, 2017 Warfarin Management per Pharmacy Indication: Stroke prophylaxis as patient has atrial fibrillation ([id number]- Vasc = 4) Goal INR: 2-3 Home Dose: 4.5 mg Wed/Wed and 3.5 mg all other days Labs: Hgb/Hct: 12.1/34.8 Plt: 190 INR: 1.76 Recommendation: Give warfarin 2 mg (in addition to 3.5 mg taken earlier this morning) as INR is subtherapeutic. INR ordered daily x 7 days Pharmacy to continue to monitor and adjust as needed. Thank You, Chichi Starr, Pharm D. Chichi Starr Apr 19, 2017 23:38
[2017-04-19] MEDS: Insulin LISPRO 300 Unit/3 mL Inj SUBQ SCH (23:52)
[2017-04-19] MEDS: Insulin GLARgine 100 Unit/mL Syringe SUBQ SCH (23:55)
[2017-04-20] VITALS (13 sets, daily range): BP systolic 132–202; BP diastolic 63–85; PULSE 58–66; RESP 16–18; O2SAT 94–98
[2017-04-20] MEDS: Alum-Mag Hydrox-Simeth 30 mL Suspension PO PRN ×2 (00:21→09:14)
[2017-04-20] MEDS: 0.9% Sodium Chloride 1,000 ML IV SCH ×2 (00:50→08:30)
[2017-04-20] MEDS: Heparin 5,000 Unit/mL Inj SUBQ SCH ×3 (01:42→17:58)
[2017-04-20] MEDS: Isosorbide Mononitrate 60 mg ER24 Tablet PO SCH ×2 (01:43→20:50)
--- NOTE | 2017-04-20 06:10 | NUR ---
Admit to [facility] Patient admitted from ED to [facility] at 2300 with RLE cellulitis and renal insufficiency. Zosyn and vanco IV antibiotics given. Currently infusing NS @100 ml/hr. Redness to RLE marked with sharpie. Patient voiding, able to stand at edge of bed. CT scan completed, patient transported via w/c, tolerated well. MRSA pending, still needs UA per protocol. Blood sugar 324 on admit, last check BG 138. BP elevated, received home meds to treat. CHF book left at bedside with patient. Oriented to room and plan of care. Verbalized understanding.
[2017-04-20 06:48] LABS: BASOPHILS % (AUTO) 0.2 % (0-3); EOSINOPHILS % (AUTO) 2.4 % (0-5); INR 1.87 ratio; MONOCYTES % (AUTO) 9.2 % (4-12); Mean Corpuscular Volume 90.1 fL (81-100); NEUTROPHILS % (AUTO) 67.5 % (40-74); Platelet Count 189 bil/L (150-400)
--- NOTE | 2017-04-20 07:58 | DRSVH ---
PROCEDURE: CT LOWER EXTREMITY WITHOUT CONTRAST ([id number]) INDICATIONS: Right-LE cellulits. abscess? nighthawk read TECHNIQUE: Noncontrast 3 mm axial sections acquired of the right leg, with coronal and sagittal reformats. For radiation dose reduction, the following was used: automated exposure control, adjustment of mA and/o r kV according to patient size. COMPARISON: None. FINDINGS: Image quality: Good Bones: No bony abnormality to indicate destructive process or fracture. Soft tissues: No fluid collections are appreciated within the musculature. Atherosclerotic calcificat ions of moderate amount are present. Generous subcutaneous edema is seen. Without contrast abscesses can easily be missed. There are homog eneous areas that are potential small abscesses versus phlegmonous edematous areas that involve the d istal lateral right side from the first image distended 5 cm inferiorly 1.5 cm in thickness and 6 cm in AP diameter. Lateral and posterolateral areas in the right leg in the subcutaneous tissues also show relatively ho mogeneous attenuation. Again abscesses cannot be excluded without contrast. Specific loculated fluid collection to indicate abscess cannot be identified. IMPRESSION: 1. No bony abnormality to indicate osteomyelitis is seen. 2. No suggestion of abscess within the muscle is identified. 3. Extensive subcutaneous edematous changes. Multiple areas are relatively homogeneous. Without contr ast abscesses in these areas could easily be missed. An ultrasound to look for loculated fluid is suggested and if seen request marking for your aspiratio n. Dictated by: Joe Gao M.D. on 04/20/2017 at 7:48 Approved by: Joe Gao M.D. on 04/20/2017 at 7:57
[2017-04-20] MEDS ORDERED: Vancomycin Dose per Pharmacist XX SCH (08:30)
[2017-04-20] MEDS: Insulin LISPRO 300 Unit/3 mL Inj SUBQ SCH ×5 (09:05→20:56)
[2017-04-20] MEDS: Piperacillin-Tazo 3.375 Gm Inj 3.375 GM in Dextrose 5% Minibag Plus 50 ML IV SCH ×2 (10:48→17:58)
[2017-04-20 11:52] LABS: APPEARANCE,URINE HAZY (CLEAR,HAZY); COLOR,URINE STRAW (YELLOW); OCCULT BLOOD,URINE SMALL (NEGATIVE); UROBILINOGEN,URINE NORMAL (NORMAL)
--- NOTE | 2017-04-20 16:12 | DRSVH ---
PROCEDURE: US EXTREMITY SONOGRAM LIMITED ([id number]) INDICATIONS: RLE possible abscess per CT. TECHNIQUE: Real-time scanning was performed of the right lower extremity, with image documentation. COMPARISON: None. FINDINGS: Edema present throughout the right anterior catheter and the right lateral thigh no drainab le fluid collections are seen. IMPRESSION: Soft tissue edema. No drainable fluid collection. Dictated by: Sridhar Salvador [facility] Interpreted: Joe Gao MD on 04/20/2017 at 14:58 Approved by: Joe Gao M.D. on 04/20/2017 at 16:11
--- NOTE | 2017-04-20 16:19 | NUR ---
Social Work-initial assessment/ multidisciplinary rounds: Data:See initial assessment. Pt is a 76 y/o female who was admitted on 04/19/17 for cellulitis per H&P. Pt's insurance is [facility] and BC Out of state and PCP Is Obinna Koehler MD. EMR Reviewed. SW met with pt at bedside, SW role explained. Pt is alert and oriented x3. Pt resides at home with roommate in a mobile home in [place]. Pt uses a cane or fww to ambulate and does not drive. Pt has HH history, but cannot remember the company name and has been to [facility] in the past. Pt has no longterm care insurance or VA benefits. SW discussed DPOA/advanced directive, pt confirms he has not completed this and declines any information. Pt discussed in morning rounds, no concerns noted from RN or MD regarding pt's capacity for self care. Pt has been up independent in his room. SW provided pt with discharge planning checklist and encouraged pt to call with any questions, phone number provided on white board in room. Pt confirms that his daughter Tessa [phone] will be providing transport home. No anticipated discharge needs. SW will continue to follow if needs arise. Assessment:Pt who is independent at baseline. Plan:Pt to discharge home when medically stable via POV. No anticipated discharge needs. SW will continue to follow if needs arise. TYLER Seo Addendum: 04/20/17 at 1624 by EMILIA HADDAD SS Amended: Links added.
--- NOTE | 2017-04-20 17:30 | PCM.PNMED ---
Subjective Date of Service Apr 20, 2017 Subjective Pt c/o of pain in both legs. Says erythema is about the same but not worse. Exam Vital Signs Vital Sign - Last Date Time Temp Pulse Resp B/P Pulse Ox O2 Delivery O2 Flow Rate FiO2 04/20/17 11:57 36.6 60 16 165/85 94 Room Air Intake and Output 04/19/17 04/19/17 04/20/17 Cumulative From/Thru 15:00 23:00 07:00 04/19/17 19:54 - 04/20/17 06:17 Intake Total 300 ml 300 ml Output Total 1000 ml 1000 ml Balance -700 ml -700 ml Intake Oral 300 ml 300 ml Output Urine Total 1000 ml 1000 ml Exam General: No acute distress, appropriately interactive HEENT: Normocephalic, atraumatic. PERRLA, EOMI, Anicteric sclerae, moist conjunctivae. Bilateral reduced hearing Neck: No JVD, No bruits. No lymphadenopathy or thyromegaly. Cardiovascular: Regular rate and rhythm with 2+ systolic murmurs, no rubs, or gallops appreciated Pulmonary: b/l air sound with no crackles, wheezes, or rhonchi. no use of accessory muscles. Abdomen: +Bowel sound, Soft, nontender, nondistended. Extremities: No clubbing or cyanosis, no lymphedema, b/l pitting lower leg edema up to knee. Right lower leg erythema, calor, and painful. Skin: Normal temperature, turgor, and texture; no rash. No visualized skin ulcer. Neurological: CN II-VII grossly intact, moving equally on all 4 extremities Psychiatric: Normal mood and affect. 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 fib, hypertension, and diastolic heart results in 2 days acute right pain and swelling, admitted for cellulitis. Acute right lower leg Cellulitis, active, poa. -LRINEC Score 6, some suspicion for necrotizing fasciitis, patient with tenderness - CT noncontrast- question of fluid. - Discussed w/ readiologist who rec US to rule out abscess. - US by radiology- Soft tissue edema. No drainable fluid collection found. -Vancomycin IV stopped, MRSA- negative. - Currently on Zosyn, follow up cx's. Acute kidney injury in the setting of chronic kidney disease stage III, present on admission, ongoing -UA negative for any bacterial infection, does show high urine protein and high glucose -Likely secondary to dehydration, osmotic diuresed -Baseline Cr 1.73 -Gentle hydration with NS 100mls/hr, -Stopped IVF 04/20 in afternoon. -Continue to monitor with AM labs -Consider Nephrology Consult if not improving Hyperglycemia in the setting of insulin-dependent diabetes mellitus, present on admission, ongoing -Glucose on admission 462, last -Lantus 44 units nightly, high algorithm sliding scale lispro, added 5 units with meals. -Blood glucose fingerstick every 6 hours -A1c pending Congestive heart failure, presumed stable -Most recent echo did show a moderate concentric LVH with impaired diastolic relaxation, EF 65% -Gentle hydration, monitor for fluid -Stopped IVF 04/20 in afternoon. Hypertension, presumed stable -home Torsemide 40mg daily, metopolol tartrate 50mg BID, metolazone 2.5mg prn -Holding torsemide and metolazone due to dehydration Paroxysmal A. fib, presumed stable -Continue with warfarin, pharmacy to dose -Current INR 1.79 Coronary artery disease -isosorbid MN 60mg daily -Atorvastatin 20 mg daily Depression -Desipramine 150mg HS CODE STATUS full code DVT prophylaxis wararin Patient Status: Patient is admitted under inpatient status with expected length of stay GREATER than 2 midnights due to severity of presenting symptoms, risk of adverse event, and complexity of treatment plan. Pain Evaluation: Adequate Pain Control VTE Prophylaxis: Sub-Q Heparin (Unfractionated) Resuscitation Status: CPR: Attempt Resuscitation Johnson Valera MD Apr 20, 2017 17:30
--- NOTE | 2017-04-20 18:29 | NUR ---
Blood Glucose Q6H bedside blood sugar checks elevated throughout day. Monitored pt eating, did not eat before checks between meals. Readings at 217, 295, and 243. paged prior to dinner dose. Nutritional 5U added to orders. Continuing to monitor.
--- NOTE | 2017-04-20 18:34 | NUR ---
BP Pt evening BP elevated at 202/72, HR 66 -reported by [employer]. In room to assess, Pt is asymptomatic. Rechecked on opposite side. BP reduced to 174/69, HR 66. paged to inform. Administered Evening Metoprolol early per MD direction.
[2017-04-20] MEDS: Insulin GLARgine 100 Unit/mL Syringe SUBQ SCH (20:49)
[2017-04-20] MEDS ORDERED: Insulin GLARgine 100 Unit/mL Syringe SUBQ SCH (21:00)
[2017-04-21] VITALS (9 sets, daily range): BP systolic 134–186; BP diastolic 60–74; PULSE 60–64; RESP 16–20; O2SAT 94–97
[2017-04-21] MEDS: Piperacillin-Tazo 3.375 Gm Inj 3.375 GM in Dextrose 5% Minibag Plus 50 ML IV SCH ×2 (00:40→08:32)
[2017-04-21] MEDS: Heparin 5,000 Unit/mL Inj SUBQ SCH ×3 (00:42→17:00)
[2017-04-21 07:18] LABS: INR 1.95 ratio
[2017-04-21] MEDS: Insulin LISPRO 300 Unit/3 mL Inj SUBQ SCH ×7 (08:00→22:04)
--- NOTE | 2017-04-21 09:00 | PCM.PHAPRO ---
Progress leg pain WARFARIN MAINTENANCE DOSING HOME DOSE: 4.5MG W, SA AND 3.5MG OTHER DAYS TODAY'S INR: 1.95 Pt. on heparin 5000 U SQ q8h drug interaction noted: zosyn will increase INR Date Apr 20-Apr 21-Mar INR 1.76 1.87 1.95 INR change 0.11 0.08 Warf Dose 2mg (+3.5MG @HOME) 3MG 4.5MG Today will give regular home dose of 4.5mg Will D/C heparin possibly tomorrow once INR is over 2.0 Rosalinda Delgado Pharm.D Apr 21, 2017 09:00
[2017-04-21] MEDS: cefTRIAXone Inj 2,000 MG in Dextrose 5% Minibag Plus 50 ML IV SCH (12:16)
--- NOTE | 2017-04-21 14:05 | PCM.PNMED ---
Subjective Date of Service Apr 21, 2017 Subjective no overnight event, afebrile, denied pain, zosyn switched to Ceftriaxone today Exam Vital Signs Vital Sign - Last Date Time Temp Pulse Resp B/P Pulse Ox O2 Delivery O2 Flow Rate FiO2 04/21/17 12:51 37.0 60 20 156/63 96 Room Air Intake and Output 04/20/17 04/20/17 04/21/17 Cumulative From/Thru 15:00 23:00 07:00 04/19/17 19:54 - 04/21/17 06:30 Intake Total 866 ml 692 ml 762 ml 2620 ml Output Total 551 ml 1025 ml 2576 ml Balance 866 ml 141 ml -263 ml 44 ml Intake Oral 692 ml 531 ml 1523 ml IV Total 866 ml 231 ml 1097 ml Output Urine Total 550 ml 1025 ml 2575 ml Stool Total 1 ml 1 ml Exam NAD, comfortably laying down on the bed no JVD, MMM, no LAD RRR, nl s1, s2 no mrg CTAB, no w,c S,ND,NT,normoactive BS+ RLE-generalized edema, mild erythema/ttp, regressing in to marked line, no fluctuance, no ulcer IVs and Medications Medications Reviewed: Medications were reviewed in detail Lab and Diagnostics Result Diagram: 04/20/1754404/20/17544 Microbiology MRSA- neg Assessment & Plan Patient is a 72-year-old male with medical history significant for 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 fib, hypertension, and diastolic heart results in 2 days acute right pain and swelling, admitted for cellulitis. acute, active Acute right lower leg Cellulitis, active, poa. LRINEC Score 6, some suspicion for necrotizing fasciitis, patient with tenderness, CT noncontrast/US ruled out abscess. pt was started on vancomycin and zosyn. Vancomycin IV stopped, MRSA - negative on 04/20. -pt remained clinically improving, no fever,wbc/pct unremarkable. -Zosyn stopped, ceftriaxone started today, likely d/c with Augmentin on d/c Acute kidney injury in the setting of chronic kidney disease stage III, present on admission, UA negative for any bacterial infection, does show high urine protein and high glucose, Likely secondary to dehydration, osmotic diuresed. Baseline Cr 1.73. pt was started on hydration with NS 100mls/hr, stopped --IVF in afternoon. -remains unchanged, eGFR similar to baseline, will monitor for now, avoid renal toxins, adjust meds Hyperglycemia in the setting of insulin-dependent diabetes mellitus, present on admission, ongoing, a1c10.1, Glucose on admission 462, -glc 200s, not in target -Lantus 44 units nightly, high algorithm sliding scale lispro, added 5 units with meals. -Blood glucose fingerstick every 6 hours -consulted on glc control at home chronic, stable Congestive heart failure, presumed stable -Most recent echo did show a moderate concentric LVH with impaired diastolic relaxation, EF 65% -Gentle hydration, monitor for fluid -Stopped IVF 04/20 in afternoon. Hypertension, presumed stable -home Torsemide 40mg daily, metopolol tartrate 50mg BID, metolazone 2.5mg prn -Holding torsemide and metolazone due to dehydration Paroxysmal A. fib, presumed stable -Continue with warfarin, pharmacy to dose -Current INR 1.79 Coronary artery disease -isosorbid MN 60mg daily -Atorvastatin 20 mg daily Depression -Desipramine 150mg HS CODE STATUS full code DVT prophylaxis wararin Patient Status: likely 1-2days, home VTE Prophylaxis: Sub-Q Heparin (Unfractionated) Resuscitation Status: CPR: Attempt Resuscitation Time spent 35min Anna Blanton MD Apr 21, 2017 14:05
--- NOTE | 2017-04-21 15:38 | NUR ---
Activity/status Pt up in in chair. No pain or complaints today. VSS. Will continue to monitor.
[2017-04-21] MEDS ORDERED: Warfarin 2.5 MG, Warfarin 2 MG PO ONE ×2 (17:00)
[2017-04-21] MEDS: Isosorbide Mononitrate 60 mg ER24 Tablet PO SCH (20:02)
[2017-04-21] MEDS: Insulin GLARgine 100 Unit/mL Syringe SUBQ SCH (20:04)
[2017-04-22] VITALS (7 sets, daily range): BP systolic 147–186; BP diastolic 66–73; PULSE 60–67; RESP 16–18; O2SAT 96–98
[2017-04-22] MEDS: Heparin 5,000 Unit/mL Inj SUBQ SCH ×3 (00:29→17:09)
--- NOTE | 2017-04-22 03:22 | NUR ---
Loose stools / CPAP BM x2 during night. First was half formed half loose then second BM all loose. RT setup CPAP for HS, sating 98% with pulse 60.
[2017-04-22 06:46] LABS: INR 1.85 ratio
[2017-04-22] MEDS: Insulin LISPRO 300 Unit/3 mL Inj SUBQ SCH ×7 (09:31→22:07)
--- NOTE | 2017-04-22 11:31 | NUR ---
Social Work-readiness for discharge/multidisciplinary rounds: data:EMR reviewed. Pt is on day 3 of hospitalization for cellulitis per H&P. Pt is not medically stable anticipate 1-2 more days. Pt continues on IV abx. Pt discussed in morning rounds, no concerned noted from RN or MD regarding pt's capacity for self care. Pt has been up independent in his room. No anticipated discharge needs. SW will continue to follow if needs arise. Assessment:Pt who is independent at baseline. Plan:Pt to discharge home when medically stable via POV. No anticipated discharge needs. SW will continue to follow if needs arise. TYLER Seo
[2017-04-22] MEDS: cefTRIAXone Inj 2,000 MG in Dextrose 5% Minibag Plus 50 ML IV SCH (11:33)
--- NOTE | 2017-04-22 11:49 | PCM.PNMED ---
Subjective Date of Service Apr 22, 2017 Subjective pt c/o less pain but looked more erythematous on RLE, denied fever, chills. pt had loose stool for the first time after few days of constipation. Exam Vital Signs Vital Sign - Last Date Time Temp Pulse Resp B/P Pulse Ox O2 Delivery O2 Flow Rate FiO2 04/22/17 09:24 36.4 60 16 147/66 96 Room Air 04/21/17 20:04 21 Intake and Output 04/21/17 04/21/17 04/22/17 Cumulative From/Thru 15:00 23:00 07:00 04/19/17 19:54 - 04/22/17 05:32 Intake Total 1522 ml 200 ml 4342 ml Output Total 500 ml 425 ml 3501 ml Balance 1022 ml -225 ml 841 ml Intake Oral 1382 ml 200 ml 3105 ml IV Total 140 ml 1237 ml Output Urine Total 500 ml 425 ml 3500 ml Stool Total 1 ml # Bowel Movements 0 1 1 Exam NAD, comfortably laying down on the bed no JVD, MMM, no LAD RRR, nl s1, s2 no mrg CTAB, no w,c S,ND,NT,normoactive BS+ RLE-generalized edema, mild erythema/ttp, regressing in to marked line, no fluctuance, no ulcer : overall decreasing tenderness but increased erythema IVs and Medications Medications Reviewed: Medications were reviewed in detail Lab and Diagnostics Result Diagram: 04/20/1754404/20/17544 Microbiology MRSA- neg Assessment & Plan Patient is a 72-year-old male with medical history significant for 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 fib, hypertension, and diastolic heart results in 2 days acute right pain and swelling, admitted for cellulitis. acute, active Acute right lower leg Cellulitis, active, poa. LRINEC Score 6, some suspicion for necrotizing fasciitis, patient with tenderness, CT noncontrast/US ruled out abscess. pt was started on vancomycin and zosyn. Vancomycin IV stopped, MRSA - negative on 04/20. Zosyn switched to CFX on 04/21. -cellulitis seemed worse but no fever,wbc/pct unremarkable, likely increased erythema is a signs of improvement given improvement clinically. -continue ceftriaxone likely d/c with Augmentin on d/c -leg elevation qshift, Acute kidney injury in the setting of chronic kidney disease stage III, present on admission, UA negative for any bacterial infection, does show high urine protein and high glucose, Likely secondary to dehydration, osmotic diuresed. Baseline Cr 1.73. pt was started on hydration with NS 100mls/hr, stopped --IVF in afternoon. -remains unchanged, eGFR similar to baseline, will monitor for now, avoid renal toxins, adjust meds -restart home torsemide today started with 40mg daily Hyperglycemia in the setting of insulin-dependent diabetes mellitus, present on admission, ongoing, a1c10.1, Glucose on admission 462, -glc 200s, not in target -increase Lantus 44 to 47 units nightly, high algorithm sliding scale lispro, added 5 units with meals. -Blood glucose fingerstick every 6 hours -consulted on glc control at home Hypertension, uncontrolled -home meds:Torsemide 40mg daily, metopolol tartrate 50mg BID, metolazone 2.5mg prn -continue to hold metolazone, restart torsemide, continue metoprolol Loose stool, 04/22, likely from bowel regimen, monitor stools closely. chronic, stable Congestive heart failure, p umed stable -Most recent echo did show a moderate concentric LVH with impaired diastolic relaxation, EF 65% -Gentle hydration, monitor for fluid -Stopped IVF 04/20 in afternoon. Paroxysmal A. fib, presumed stable -Continue with warfarin, pharmacy to dose -Current INR 1.79 Coronary artery disease -isosorbid MN 60mg daily -Atorvastatin 20 mg daily Depression -Desipramine 150mg HS CODE STATUS full code DVT prophylaxis wararin Patient Status: likely 1-2days, home VTE Prophylaxis: Sub-Q Heparin (Unfractionated) Resuscitation Status: CPR: Attempt Resuscitation Time spent 35min Anna Blanton MD Apr 22, 2017 11:49
[2017-04-22] MEDS ORDERED: Warfarin 2.5 MG, Warfarin 2 MG PO ONE ×2 (17:00)
--- NOTE | 2017-04-22 17:53 | NUR ---
Edema 2-3+ PE in [facility] pat order to elevate extremities on 2 pillows while in bed, Md asked about resuming home dose of torsemide 40mg bid, medication re-started, voided 800cc & voids x 3 during shift, no change in weight since admit. Continuing to monitor.
[2017-04-22] MEDS: Isosorbide Mononitrate 60 mg ER24 Tablet PO SCH (21:15)
[2017-04-22] MEDS: Insulin GLARgine 100 Unit/mL Syringe SUBQ SCH (21:21)
[2017-04-23] VITALS (8 sets, daily range): BP systolic 120–179; BP diastolic 59–74; PULSE 60–88; RESP 18; O2SAT 95–98
[2017-04-23] MEDS: Heparin 5,000 Unit/mL Inj SUBQ SCH ×3 (00:07→17:17)
--- NOTE | 2017-04-23 05:49 | NUR ---
O2 Sats With CPAP on sat'ing 97% during night.
[2017-04-23 06:52] LABS: INR 1.73 ratio
[2017-04-23] MEDS: Insulin LISPRO 300 Unit/3 mL Inj SUBQ SCH ×7 (08:00→20:19)
--- NOTE | 2017-04-23 11:13 | PCM.PNMED ---
Subjective Date of Service Apr 23, 2017 Subjective pt remained afebrile, still has some pain on RLE, redness, thinks swelling is improving significantly Exam Vital Signs Vital Sign - Last Date Time Temp Pulse Resp B/P Pulse Ox O2 Delivery O2 Flow Rate FiO2 04/23/17 10:38 36.7 63 18 135/59 98 Room Air 04/21/17 20:04 21 Intake and Output 04/22/17 04/22/17 04/23/17 Cumulative From/Thru 15:00 23:00 07:00 04/19/17 19:54 - 04/22/17 21:23 Intake Total 1848 ml 6190 ml Output Total 800 ml 4301 ml Balance 1048 ml 1889 ml Intake Oral 1768 ml 4873 ml IV Total 80 ml 1317 ml Output Urine Total 800 ml 4300 ml Stool Total 1 ml # Voids 4 4 # Bowel Movements 3 4 Exam NAD, comfortably laying down on the bed no JVD, MMM, no LAD RRR, nl s1, s2 no mrg CTAB, no w,c S,ND,NT,normoactive BS+ RLE-less edema, mild erythema/ttp, regressing in to marked line, no fluctuance, no ulcer : overall decreasing tenderness but increased erythema IVs and Medications Medications Reviewed: Medications were reviewed in detail Lab and Diagnostics Result Diagram: 04/20/1754404/20/17544 Microbiology MRSA- neg Assessment & Plan Patient is a 72-year-old male with medical history significant for 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 fib, hypertension, and diastolic heart results in 2 days acute right pain and swelling, admitted for cellulitis. acute, active Acute right lower leg Cellulitis, active, poa. LRINEC Score 6, some suspicion for necrotizing fasciitis, patient with tenderness, CT noncontrast/US ruled out abscess. pt was started on vancomycin and zosyn. Vancomycin IV stopped, MRSA - negative on 04/20. Zosyn switched to CFX on 04/21. -pt is making slow improvement, remained c -continue ceftriaxone likely d/c with Augmentin on d/c -leg elevation qshift, Acute kidney injury in the setting of chronic kidney disease stage III, present on admission, UA negative for any bacterial infection, does show high urine protein and high glucose, Likely secondary to dehydration, osmotic diuresed. Baseline Cr 1.73. pt was started on hydration with NS 100mls/hr, stopped --IVF in afternoon. -awaits CMP today, eGFR similar to baseline, will monitor for now, avoid renal toxins, adjust meds -continue diuretics, Hyperglycemia in the setting of insulin-dependent diabetes mellitus, present on admission, ongoing, a1c10.1, Glucose on admission 462, -glc99 in target, -continue Lantus 47 units nightly, high algorithm sliding scale lispro, added 5 units with meals. -Blood glucose fingerstick every 6 hours -consulted on glc control at home Hypertension, uncontrolled -home meds:Torsemide 40mg daily, metopolol tartrate 50mg BID, metolazone 2.5mg prn -continue to hold metolazone, resumed torsemide, metoprolol Loose stool, 04/22, likely from bowel regimen, monitor stools closely. chronic, stable Congestive heart failure, p umed stable -Most recent echo did show a moderate concentric LVH with impaired diastolic relaxation, EF 65% -Stopped IVF 04/20 in afternoon, resumed torsemide 04/22 Paroxysmal A. fib, presumed stable -Continue with warfarin, pharmacy to dose -Current INR 1.79 Coronary artery disease -isosorbid [place] 60mg daily -Atorvastatin 20 mg daily Depression -Desipramine 150mg HS CODE STATUS full code DVT prophylaxis wararin Patient Status: likely 1-2days, home VTE Prophylaxis: Sub-Q Heparin (Unfractionated) VTE Mechanical Devices: Venous Foot Pump Resuscitation Status: CPR: Attempt Resuscitation Time spent 35min Anna Blanton MD Apr 23, 2017 11:12
[2017-04-23] MEDS: cefTRIAXone Inj 2,000 MG in Dextrose 5% Minibag Plus 50 ML IV SCH (12:00)
--- NOTE | 2017-04-23 13:10 | PCM.PHAPRO ---
Progress leg pain -Apr 22-Apr 23-Mar 1.95 1.85 1.73 0.08 -0.1 -0.12 4.5MG 4.5 5 Obinna Aguilar Pharm.D Apr 23, 2017 13:10
--- NOTE | 2017-04-23 17:55 | NUR ---
Activity Pt amb to BR with FWW/1 person SBA, tolerating activity well. Enc to sit up in chair for meals then back to bed with RLE elevated, pt compliant. Denies any pain/discomfort at this time. Bed in lowest, locked position and call light within reach.
[2017-04-23] MEDS: Insulin GLARgine 100 Unit/mL Syringe SUBQ SCH (20:19)
[2017-04-23] MEDS: Isosorbide Mononitrate 60 mg ER24 Tablet PO SCH (20:19)
[2017-04-24 00:18] VITALS: BP 168/66; PULSE 60; RESP 20; O2SAT 95
[2017-04-24] MEDS: Heparin 5,000 Unit/mL Inj SUBQ SCH ×2 (01:23→08:56)
[2017-04-24 04:25] VITALS: BP 181/65; PULSE 61; RESP 20; O2SAT 94
[2017-04-24 05:59] LABS: BASOPHILS % (AUTO) 0.3 % (0-3); EOSINOPHILS % (AUTO) 3.3 % (0-5); MONOCYTES % (AUTO) 8.6 % (4-12); Mean Corpuscular Hemoglobin 31.6 pg (27.0-35.0); NEUTROPHILS % (AUTO) 56.9 % (40-74); Platelet Count 214 bil/L (150-400)
[2017-04-24 06:01] VITALS: PULSE 63
[2017-04-24 06:11] LABS: INR 1.9 ratio
--- NOTE | 2017-04-24 06:34 | NUR ---
Cellulites Cellulites at RLL: skin appears dark red, redness and edema improving, no pain, skin warm to touch. LEs elevated on 2 pillows..
[2017-04-24 07:16] VITALS: BP 114/58; PULSE 60; O2SAT 95
--- NOTE | 2017-04-24 07:20 | PCM.PHAPRO ---
Progress leg pain Apr 23-Apr 24-Mar 1.85 1.73 1.90 -0.1 -0.12 0.17 4.5 5 5 Obinna Aguilar Pharm.D Apr 24, 2017 07:20
[2017-04-24] MEDS: Insulin LISPRO 300 Unit/3 mL Inj SUBQ SCH ×4 (08:57→11:27)
[2017-04-24 09:06] VITALS: PULSE 66
[2017-04-24] MEDS ORDERED: CEPH500T PO (09:27)
[2017-04-24 09:34] VITALS: BP 153/64; PULSE 61; RESP 18; O2SAT 95
--- NOTE | 2017-04-24 11:16 | PCM.DIMED ---
Discharge Instructions Date of Service Apr 24, 2017 Dates of Hospitalization Apr 19, 2017 at 22:08 Discharge Diagnosis Discharge Diagnosis acute dx Right lower leg Cellulitis, non-purulent, Acute kidney injury on CKD Hyperglycemia in the setting of insulin-dependent diabetes mellitus Hypertension, uncontrolled chronic dx Congestive heart failure, Paroxysmal A. fib Coronary artery disease Depression Medication Instructions Additional med instructions Please take Cephalexin 500mg four times per day for 7more days Diet Discharge Diet: Low fat, Low Sodium, Heart Healthy, Diabetic Activity Discharge Activity: No restrictions Call your provider Call your provider for: Fever or Chills Patient Instructions Patient Instructions You were hospitalized with leg soft tissue infection. You were treated with antibiotics, responded well. Please continue antibiotics as instructed above, Please follow up with your doctor in 1-2weeks Follow-up Provider: Obinna Barrios MD Follow-up with PCP in: 1 week Anna Blanton MD Apr 24, 2017 11:16
--- NOTE | 2017-04-24 11:22 | NUR ---
Social Work: Discharge Data: EMR reviewed. Patient is on day 5 of hospitalization for cellulitis, renal insufficiency, and hyperglycemia per H&P. Patient discussed in morning rounds. Patient has been deemed medically stable and cleared for discharge today per MD. Transportation arrangements will be provided by family. Patient will have no discharge needs. Assessment: Patient will discharge home. Plan: Patient will discharge home today. No needs anticipated at this time. Transportation will be arranged by patient. TYLER Leyva
[2017-04-24] MEDS: cefTRIAXone Inj 2,000 MG in Dextrose 5% Minibag Plus 50 ML IV SCH (12:00)
--- NOTE | 2017-04-24 12:01 | NUR ---
Discharge Patient given discharge orders. Patient given medication list with written instructions when next dose of medication is due. Patient given informational packets. Patient given hard copy of prescription. Patient awaiting family for transportation.
--- NOTE | 2017-04-24 15:36 | PCM.DC.MED ---
Discharge Summary Date of Service Apr 24, 2017 Dates of Hospitalization Date of Hospital Admission Apr 19, 2017 at 22:08 Date of Discharge: Apr 24, 2017 Providers: Admitting Physician: Maria Elena Campos DO Primary Care Physician: Obinna Barrios MD Attending Physician: Anna Junior MD Diagnosis at Time of Discharge Diagnosis at Time of Discharge acute dx Right lower leg Cellulitis, non-purulent, Acute kidney injury on CKD Hyperglycemia in the setting of insulin-dependent diabetes mellitus Hypertension, uncontrolled chronic dx Congestive heart failure, Paroxysmal A. fib Coronary artery disease Depression Brief History HPI obtained by Dr. Campos on 04/19 Patient is a 76-year-old male with medical history significant for uncontrolled diabetes with peripheral neuropathy, chronic kidney disease stage III paroxysmal atrial fibrillation hypertension, and diastolic heart failure presents to the ED with right leg swelling. Per patient, right leg has been red and swollen for the past 3 days with associated increasing leg pain. Pain is exquisite. He denies any recent injuries, however patient does have peripheral neuropathy which limits the sensation in his lower legs. Patient denies any fevers, or chills. Patient did note to have some night sweats although he attributes this to his hyperglycemia yesterday. Patient stated his glucometer read as extremely high above 500 mg/DL. Patient reports polydipsia and polyuria. In the ED, patient vital remained stable. Lab CBC unremarkable WBC 4.2, CMP electrolytes unremarkable, BUN 41 creatinine 2.19, baseline creatinine is 1.7. Additionally glucose was 462. Lactic acid 1.6. Given physical findings possible cellulitis in the right lower leg, ED recommended that patient be admitted for further evaluation for cellulitis in addition to hyperglycemia. 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 fib, hypertension, and diastolic heart results in 2 days acute right pain and swelling, admitted for cellulitis. Brief hospital course pt was admitted with acute cellulitis, LRINEC Score 6, some suspicion for necrotizing fasciitis, patient with tenderness, however, CT noncontrast/US ruled out abscess. pt was started on vancomycin and zosyn. Vancomycin IV stopped , MRSA- negative on 04/20. Zosyn switched to CFX on 04/21, which continued 3days. Pt clinically improved significantly, less erythema tender, pt remained afebrile , didn't show any signs of sepsis. Plan is to Keflex 500mg qid for 10days course. acute, active Acute right lower leg Cellulitis, active, poa. LRINEC Score 6, some suspicion for necrotizing fasciitis, patient with tenderness, CT noncontrast/US ruled out abscess. pt was started on vancomycin and zosyn. Vancomycin IV stopped, MRSA - negative on 04/20. Zosyn switched to CFX on 04/21. -pt is making slow improvement, remained c -continue ceftriaxone likely d/c with Augmentin on d/c -leg elevation qshift, Acute kidney injury in the setting of chronic kidney disease stage III, present on admission, UA negative for any bacterial infection, does show high urine protein and high glucose, Likely secondary to dehydration, osmotic diuresed. Baseline Cr 1.73. pt was started on hydration with NS 100mls/hr, stopped --IVF in afternoon. -awaits CMP today, eGFR similar to baseline, will monitor for now, avoid renal toxins, adjust meds -continue diuretics, Hyperglycemia in the setting of insulin-dependent diabetes mellitus, present on admission, ongoing, a1c10.1, Glucose on admission 462, -glc99 in target, -continue Lantus 47 units nightly, high algorithm sliding scale lispro, added 5 units with meals. -Blood glucose fingerstick every 6 hours -consulted on glc control at home Hypertension, uncontrolled -home meds:Torsemide 40mg daily, metopolol tartrate 50mg BID, metolazone 2.5mg prn -continue to hold metolazone, resumed torsemide, metoprolol Loose stool, 04/22, likely from bowel regimen, monitor stools closely. chronic, stable Congestive heart failure, p umed stable -Most recent echo did show a moderate concentric LVH with impaired diastolic relaxation, EF 65% -Stopped IVF 04/20 in afternoon, resumed torsemide 04/22 Paroxysmal A. fib, presumed stable -Continue with warfarin, pharmacy to dose -Current INR 1.79 Coronary artery disease -isosorbid MN 60mg daily -Atorvastatin 20 mg daily Depression -Desipramine 150mg HS CODE STATUS full code DVT prophylaxis wararin Patient Status: likely 1-2days, home Exam Vital Signs (Last) Date Time Temp Pulse Resp B/P Pulse Ox O2 Delivery O2 Flow Rate FiO2 8/26/17 09:34 36.6 61 18 153/64 95 Room Air 04/21/17 20:04 21 Exam pt was examined on the day of d/c RLE: no erythema, trace edema Test 04/19/17 20:30 04/20/17 11:36 04/23/17 06:13 04/24/17 05:31 Hemoglobin A1c 10.1% (4.8-5.6) Lactic Acid Level 1.6mmol/L (0.4-2.0) C-Reactive Protein 1.8mg/dL (0.0-0.5) Urine Color Straw (YELLOW) Urine Appearance Hazy (CLEAR,HAZY) Urine pH 6.0 (5.0-8.0) Urine Specific Berry 1.015 (1.003-1.035) Urine Protein 100mg/dL (NEG,TRACE) Urine Glucose (UA) 250mg/dL (NEGATIVE) Urine Ketones Negativemg/dL (NEGATIVE) Urine Occult Blood Small (NEGATIVE) Urine Nitrite Negative (NEGATIVE) Urine Bilirubin Negative (NEGATIVE) Urine Urobilinogen Normalmg/dL (NORMAL) Urine Leukocyte Esterase Small (NEGATIVE) Urine RBC 0-2/hpf (0-2) Urine WBC 11-50/hpf (0-5) Urine Epithelial Cells Occasional/hpf (NONE-MOD) Urine Crystals None seen (NONE SEEN) Urine Bacteria Few/hpf (NONE-FEW) Urine Hyaline Casts None/lpf (NONE) Urine Granular Casts None seen (NONE SEEN) Urine Waxy Casts None seen (NONE SEEN) Urine Red Blood Cell Casts None seen (NONE SEEN) Urine White Blood Cell Casts None seen (NONE SEEN) Urine Mucus None seen (None Seen) Urine Trichomonas None seen (NONE SEEN) Urine Yeast None (NONE SEEN) Urinalysis Comment None Urine Culture Reflexed Indicated Magnesium Level 2.0mg/dL (1.6-2.6) White Blood Count 4.0th/mm3 (3.8-10.1) Red Blood Count 3.74mil/mm3 (4.40-5.80) Hemoglobin 11.8g/dL (13.8-17.2) Hematocrit 34.4% (41.0-50.0) Mean Corpuscular Volume 92.0fL (81-100) Mean Corpuscular Hemoglobin 31.6pg (27.0-35.0) Mean Corpuscular Hemoglobin Concent 34.3% (32.0-37.0) Red Cell Distribution Width 13.4% (12.3-15.4) Platelet Count 214bil/L (150-400) Neutrophils (%) (Auto) 56.9% (40-74) Lymphocytes (%) (Auto) 30.6% (14-46) Monocytes (%) (Auto) 8.6% (4-12) Eosinophils (%) (Auto) 3.3% (0-5) Basophils (%) (Auto) 0.3% (0-3) Prothrombin Time 20.6sec (8.1-12.5) Prothromb Time International Ratio 1.90ratio Sodium Level 139mEq/L (134-144) Potassium Level 4.5mEq/L (3.5-5.2) Chloride Level 98mEq/L (97-108) Carbon Dioxide Level 28mmol/L (18-29) Blood Urea Nitrogen 42mg/dL (8-27) Creatinine 2.29mg/dL (0.76-1.27) Estimat Glomerular Filtration Rate 30mL/min (>59) Glucose Level 195mg/dL (60-99) Calcium Level 8.4mg/dL (8.5-10.1) Total Bilirubin 0.2mg/dL (0.0-1.2) Aspartate Amino Transf (AST/SGOT) 32U/L (0-50) Alanine Aminotransferase (ALT/SGPT) 26U/L (0-44) Alkaline Phosphatase 95U/L (25-160) Total Protein 6.2g/dL (6.4-8.4) Albumin 3.1g/dL (3.4-5.0) Microbiology Results MRSA- neg Discharge Medications Discharge Medications Cephalexin (Cephalexin) 500 Mg Tablet 500 MG PO QID Prescribed by: ANNA JUNIOR MD Cholecalciferol (Vitamin D3) (Vitamin D3) 2,000 Unit Tablet 2,000 UNIT PO QAM ( Reported) Cyanocobalamin (Vitamin B-12) (Vitamin B-12) 1,000 Mcg Tablet 1,000 MCG PO QAM ( Reported) Desipramine (Desipramine) 150 Mg Tab 150 MG PO HS (Reported) Ferrous Sulfate (Ferrous Sulfate) 325 Mg Tablet 325 MG PO QAM (Reported) Insulin Aspart (NovoLOG U100 Insulin Vial) 100 U/Ml U 3-9 UNIT SUBQ TIDWM ( Reported) Insulin Detemir (Levemir U100 Insulin Vial) 100 Unit/1 Ml Vial 44 UNIT SUBQ HS ( Reported) Isosorbide MN ER (Isosorbide MN ER) 60 Mg Tab.er.24h 60 MG PO HS (Reported) Magnesium Oxide (Magnesium Oxide) 400 Mg Tablet 800 MG PO QAM (Reported) Metoprolol Tartrate (Metoprolol Tartrate) 50 Mg Tablet 50 MG PO BID (Reported) Rosuvastatin Calcium (Rosuvastatin Calcium) 40 Mg Tablet 40 MG PO HS (Reported) Torsemide (Torsemide) 20 Mg Tablet 40 MG PO BIDWM (Reported) Warfarin Sodium (Warfarin Sodium) 3 Mg Tablet 3.5 MG PO DAILY EXCEPT WED/SAT ( Reported) 4.5 MG WED/SAT AND 3.5 MG ALL OTHER DAYS Warfarin Sodium (Warfarin Sodium) 3 Mg Tablet 4.5 MG PO WED/SAT (Reported) 4.5 MG WED/SAT AND 3.5 MG ALL OTHER DAYS As needed Docusate Sodium (Colace) 100 Mg Capsule 100 MG PO DAILY PRN PRN For Constipation (Reported) Metolazone (Metolazone) 2.5 Mg Tablet 2.5 MG PO DAILY PRN PRN edema (Reported) Nitroglycerin SL (Nitroglycerin SL) 0.4 Mg Tab.subl 0.4 MG SL Q5MIN PRN PRN For Chest Pain Prescribed by: ABBIE NIELSON MD Sennosides (Senna) 8.6 Mg Tablet 17.2 MG PO DAILY PRN PRN For Constipation ( Reported) Triamcinolone Acet (Triamcinolone Acetonide Cream) 1 Applic/0.25 Gm Cr 1 APPLIC EXT BID PRN PRN rash (Reported) TO SCALP Additional med instructions Please take Cephalexin 500mg four times per day for 7more days Followup Plan Disposition: home Discharge Diet: Low fat, Low Sodium, Heart Healthy, Diabetic Discharge Activity: No restrictions Patient Instructions You were hospitalized with leg soft tissue infection. You were treated with antibiotics, responded well. Please continue antibiotics as instructed above, Please follow up with your doctor in 1-2weeks Follow-up Provider: Obinna Barrios MD Follow-up with PCP in: 1 week Time spent 65min Anna Junior MD Apr 24, 2017 15:36
== END 2017-04-24 13:35 | disposition home or self-care (01) | DRG 603 ==
LOC: SED 19:36 → MOC 22:08 → MPC 22:37
PROVIDERS: ADMIT Internal Medicine; ATTEND Internal Medicine
DX: L03.115 Cellulitis of right lower limb (principal); I50.32 Chronic diastolic (congestive) heart failure; N17.9 Acute kidney failure, unspecified; Z85.46 Personal history of malignant neoplasm of prostate; I48.0 Paroxysmal atrial fibrillation; Z79.01 Long term (current) use of anticoagulants; E11.65 Type 2 diabetes mellitus with hyperglycemia; E11.42 Type 2 diabetes mellitus with diabetic polyneuropathy; N18.3 Chronic kidney disease, stage 3 (moderate); I12.9 Hypertensive chronic kidney disease with stage 1 through stage 4 chronic kidney disease, or unspecified chronic kidney disease; I25.10 Atherosclerotic heart disease of native coronary artery without angina pectoris; F32.9 Major depressive disorder, single episode, unspecified; Z95.0 Presence of cardiac pacemaker; Z95.1 Presence of aortocoronary bypass graft; Z87.891 Personal history of nicotine dependence; Z79.4 Long term (current) use of insulin